=== PATIENT | female | born 1960 | race Caucasian/White ===

== ENCOUNTER 2018-09-16 13:08 | Inpatient (IN) ==
[2018-09-16] MEDS ORDERED: Acetaminophen 325 MG TABLET PO PRN (15:37)
--- NOTE | 2018-09-16 15:48 | Internal Med History&Physical ---
Date of Encounter: 09/16/18 Time of Encounter: 17:51 Internal Medicine - H&P: HPI Chief complaint: Fatigue Admitted From: Hospital to Hospital Transfer History of present illness: Erendira Valencia is a 58 F w hx CAD s/p CABG, hx CVA, HTN, COPD, smoker, DM2, breast cancer s/p mastectomy and chemoradiation, who presented to OSH for fatigue. Pt's symptoms began yesterday AM while shopping, felt general unease for which she went home to take a nap. When she awoke, she was nauseated and had some mid- right sided continuous chest pressure not exertional for which she called EMS. Reportedly her SBP was ~240. Her nausea worsened throughout the day and led to nonbloody bilious vomiting. She also states that yesterday she felt her right arm and leg were weaker than previous, and she says in the OSH when attempting to walk her RN noted weakness, too. She says a CT scan yesterday showed a stroke. She was also noted to have elevated trop 0.7. Today, she denies [place], fever, vision or hearing or taste changes, no new numbness (says she gets tingling feet periodically), and no weakness today. N/V resolved. No further chest pain. In the OSH ED, pt underwent CT which showed area of encephalomelacia R parietal lobe likely old infarct but unable to rule out metastasis, etc. SBP was elevated. Trop also elevated to 0.7. Transferred to [facility] for further workup of potential ischemia and CVA/TIA. PMH: CAD, CVA, COPD, DM2, breast cancer PSH: CABG, mastectomy, x2 SH: lifelong smoker currently down to 6 cigarettes daily, no EtOH, lives at home w son FH: MGM from [place], father from stomach cancer, mother from COPD Allergies: compazine Past Med Surg Social Fam HX - Family History Mother Living Status: Hx Family Respiratory Disorders: Yes (COPD) Father Living Status: Hx Family Cancer: Yes Internal Medicine - H&P: Meds Allergy/AdvReac Type Severity Reaction Status Date / Time prochlorperazine Allergy Seizure Verified 09/16/18 16:05 [From Compazine] All Systems PM: A 10-system review of systems was performed and is negative for pertinent findings except as documented above in the HPI. Review of systems: Constitutional: No fever, chills, night sweats, weight change, appetite change, +malaise/fatigue Skin: No rash, itching, lesions, bruises HENT: No congestion, sore throat Eyes: No blurry vision, diminished vision Cardiovascular: +improved chest pain, no palpitations, edema, orthopnea Respiratory: No cough, shortness of breath, wheezing Gastrointestinal: +improved nausea, +improved vomiting, no abdominal pain, diarrhea, constipation Genitourinary: No dysuria, hematuria Musculoskeletal: No joint pains, decreased range of motion Neurological: No dizziness, headaches, weakness, +endorses slight confusion Psychiatric: No depression, +anxiety Allergy/Immunology: No history of environmental allergies, urticaria Endocrine: No polydipsia, polyuria, cold/heat intolerance - Constitutional Vitals: Vital Signs Temp Pulse Resp BP Pulse Ox 09/16/18 16:07 99 09/16/18 15:37 97.9 F 95 14 142/78 99 Intake and Output 09/16/18 09/16/18 09/16/18 07:59 15:59 23:59 Intake Total 0 / 0 0 / 0 Output Total 0 / 0 Balance 0 / 0 0 / 0 Intake: Oral 0 / 0 0 / 0 Output: Urine 0 / 0 Other: Meal Dinner Percent of Meal Consumed 0% Weight 51.6 kg Blood Glucose* 247 Patient Weight 09/16/18 23:59 Weight 51.6 kg Exam: General: NAD, AAOx3, good eye contact, well appearing Head: Atraumatic, normocephalic. Face symmetric Eyes: EOMI, sclerae anicteric ENT: Mucous membranes moist. Normal oral mucosa and dentition. Trachea midline. No cervical lymphadenopathy Thoracic: No visible chest wall deformities. Normal breath sounds b/l, no wheezing or crackles. Midline CABG scar. Cardio: Normal S1 and S2, regular rate and rhythm, no murmurs. No JVD Abdomen: Soft, nontender, nondistended. Bowel sounds present. No rebound Extremities: Warm, well perfused. DP pulses 2+ b/l. No clubbing, cyanosis. No edema Skin: Intact. No rashes, bruises, or ulcers Neurological: pt is awake and oriented to person, place, time, and situation Speech: fluent, comprehension, repetition, and naming intact CN: PERRLA, EOMI, intact sensation to light touch, face and smile symmetric, good hearing of whispered word, uvula midline, 5/5 strength of shoulder shrug, no tongue deviation. Motor: good tonus, 5/5 strength in all extremities Sensation intact to light touch DTR 1+ symmetrically in biceps, triceps, BR, knee, and ankle Cerebellar: FTN and HTS without dysmetria, no impairment with BERTA Romberg not tested Gait: no abnormalities noted Internal Med - H&P Results - Labs CBC & Chem 7: 09/16/18 18:22 - Assessment and plan (1) CVA (cerebral vascular accident) Current Visit: Yes Status: Acute Assessment and plan: Erendira Valencia is a 58 F w hx CAD s/p CABG, hx CVA, HTN, COPD, smoker, DM2, breast cancer s/p mastectomy and chemoradiation, who p/w fatigue, chest pain, and right sided weakness, found to have elevated SBP and troponin, and CT showing remote infarct, concerning for the following: TIA: CT head without bleed, does show remote parietal infarct and no acute process, by time of transfer is well past any TPA window although no current neurologic defects - Frequent Neuro checks - Imaging: MRI head, TTE, carotid duplex - Labs: lipids, A1c - home plavix 75, increase crestor from 10 to 40 - DVT ppx - SBP goal: <220 - Telemetry monitoring for arrythmia - PT/OT/Speech consults - Swallow screen - Smoking cessation counseled - Stroke education provided - Neuro consult Elevated troponin: possibly demand 2/2 HTN or sympathetic storm in context of new CVA - trend trops, was 0.7 at OSH - ECG - tele as above - TTE as above - consider cardio consultation following TTE for additional ischemic eval (?LHC) in pt w CABG and elevated trop 0.7 following chest pain and N/V DM2: w hyperglycemia, start basal levemir and bolus SSI CAD/PAD, s/p CABG: continue plavix, crestor, metoprolol HTN: continue home metoprolol, will monitor and add to home regimen if needed COPD: not in exacerbation, no wheezing and good expiratory flow, continue home inhalers Hx breast cancer: in remission, still has L chest port in place and pt reports the port from the catheter Smoker: nicotine patch offered, refused PPx: lovenox FEN: ADA, no MIVF Lines: PIV Consults: Neuro Code: Full Dispo: obs for TIA and ischemic eval, anticipate 1-2 days, will be homegoing. Qualifiers: CVA mechanism: unspecified Qualified Code(s): I63.9 - Cerebral infarction, unspecified - Time Spent With Patient Total time spent is greater than 50% in coordination of care (as documented) at patient's floor/unit and/or counseling patient: Greater than 35 minutes - VTE Reasons for not Prescribing Prophylaxis: Treatment not Indicated - Low risk for VTE
[2018-09-16] MEDS ORDERED: D5% in Water 1,000 ML IVC PRN (17:48)
[2018-09-16] MEDS ORDERED: Dextrose Gel 15 GM/37.5 ML TUBE PO PRN ×2 (17:48)
[2018-09-16] MEDS ORDERED: *HR* Dextrose 50 % in Water (Syg) 50 ML SYRINGE IVP PRN (17:48)
[2018-09-16] MEDS: Aspirin Enteric Coated 81 MG Tablet PO SCH (18:06)
[2018-09-16] MEDS: Insulin LISPRO 300 UNITS/3 ML VIAL SQ SCH ×2 (18:44→21:33)
[2018-09-16 18:57] LABS: BUN/Creatinine Ratio 33 (6-26); Blood Urea Nitrogen 29 mg/dL (8-23); Carbon Dioxide 21 mEq/L (23-29); Chloride 93 mEq/L (98-107); Glucose 274 mg/dL (70-105); Osmolality,Calculated 288 (280-300); Potassium 3.9 mEq/L (3.5-5.1); Sodium 131 mEq/L (136-145); eGFR For Non-African Americans > 60 (> 60)
[2018-09-16 19:00] LABS: Troponin I 0.45 ng/mL (< 0.04)
[2018-09-16] MEDS: Insulin DETEMIR 100 UNIT/ML X5UNITS SQ SCH (21:30)
[2018-09-16] MEDS: Budesonide/Formoterol 160/4.5 1 PUFF INH IH SCH (22:07)
[2018-09-16] MEDS ORDERED: Ondansetron 4 MG/2 ML VIAL IVP PRN (23:34)
[2018-09-17] MEDS ORDERED: 0.9 % Sodium Chloride 500 ML IVC ONE ×2 (02:05→04:21)
[2018-09-17] MEDS ORDERED: 0.9 % Sodium Chloride 500 ML ONE ×2 (02:07→04:13)
[2018-09-17] MEDS ORDERED: Ringers Solution, Lactated 1,000 ML ONE (05:48)
[2018-09-17] MEDS ORDERED: Ringers Solution, Lactated 1,000 ML IVC SCH (06:00)
[2018-09-17 06:38] LABS: Basophils % 0.2 %; Eosinophils % 0.1 %; Hematocrit 43.8 % (35.3-44.9); Hemoglobin 14.8 g/dL (11.5-15.4); Immature Granulocytes % 0.4 % (0-4); Lymphocytes # 3.1 K/mcL (0.6-4.6); Lymphocytes % 37.3 %; Mean Corpuscular HGB Conc 33.8 g/dL (31.6-35.5); Mean Corpuscular Hemoglobin 30.5 pg (28.0-33.3); Mean Corpuscular Volume 90.1 fL (83.0-100.0); Mean Platelet Volume 11.3 fL (9.4-12.4); Monocytes # 0.6 K/mcL (0.0-1.3); Monocytes % 6.7 %; Neutrophils # 4.7 K/mcL (1.6-8.9); Platelet Count 200 K/mcL (140-400); Red Blood Count 4.86 M/mcL (3.82-4.97); Red Cell Distribution Width 13.4 % (11.5-14.5); Segmented Neutrophils % 55.3 %
[2018-09-17 06:47] LABS: Prothrombin Time 10.9 Seconds (9.4-12.1)
[2018-09-17 06:51] LABS: Alanine Aminotransferase 6 Units/L (7-52); Albumin/Globulin Ratio 1.5 (1.1-2.2); Alkaline Phosphatase 67 Units/L (34-104); Aspartate Amino Transferase 15 Units/L (13-39); BUN/Creatinine Ratio 41 (6-26); Bilirubin,Total 0.5 mg/dL (0.3-1.0); Blood Urea Nitrogen 37 mg/dL (8-23); Calcium 9.1 mg/dL (8.6-10.3); Carbon Dioxide 18 mEq/L (23-29); Chloride 97 mEq/L (98-107); Chol/HDL Ratio 7.1 (0-4.9); Cholesterol 385 mg/dL (< 200); Globulin 2.7 g/dL (2.4-3.5); Glucose 307 mg/dL (70-105); HDL Cholesterol 54 mg/dL (40-59); Osmolality,Calculated 290 (280-300); Potassium 4.1 mEq/L (3.5-5.1); Sodium 130 mEq/L (136-145); Total Protein 6.7 g/dL (6.4-8.9); eGFR For Non-African Americans > 60 (> 60)
[2018-09-17 06:54] LABS: LDL Cholesterol,Calculated 262 mg/dL (0-99); Triglycerides 345 mg/dL (< 150); Troponin I 0.28 ng/mL (< 0.04)
[2018-09-17] MEDS: Budesonide/Formoterol 160/4.5 1 PUFF INH IH SCH ×2 (08:09→22:24)
[2018-09-17] MEDS ORDERED: *HR* Heparin 5,000 UNIT/ML VIAL IVP PRN ×2 (08:16)
[2018-09-17] MEDS ORDERED: *HR* Heparin 5,000 UNIT/ML VIAL IVP ONE (08:16)
[2018-09-17] MEDS: Insulin LISPRO 300 UNITS/3 ML VIAL SQ SCH ×7 (08:27→21:43)
[2018-09-17] MEDS: Aspirin Enteric Coated 81 MG Tablet PO SCH (08:27)
[2018-09-17] MEDS ORDERED: Heparin 25,000 UNIT/500 ML D5W 25,000 UNIT/500 ML BAG IVC SCH (08:30)
[2018-09-17 08:31] LABS: Estimated Average Glucose 306 mg/dl; Hemoglobin A1C 12.3 %
--- NOTE | 2018-09-17 09:29 | Cardiology Consult Note ---
Addendum entered and electronically signed by Rober Hinson DO 09/17/18 15:15: Continue Plavix as well. Addendum entered and electronically signed by Rober Hinson DO 09/17/18 15:12: I examined this patient and my medical decision-making was reviewed with the Resident Physician. I agree with the documented findings, disposition and treatment plan as described except to the extent set forth below. 58-year-old female presents with a primary complaint neurological symptoms. Blood pressure noted to be significantly elevated. Reports associated chest discomfort. Describes as a substernal pressure sensation. States chest discomfort is similar to prior episodes when she has required PCI. Primary compliance representative dealer is Dr. Montes De Oca at [facility]. States her last PCI was 2-3 years ago. Describes multiple prior stents. Impressions: 1. Hypertensive urgency. 2. Chest discomfort. 3. Mild troponin elevation of unclear significance. This could be related to extreme hypertension, but ACS cannot be excluded. 4. Multiple comorbidities include known CAD, diabetes, previous CVA, etc. Recommendations: 1. Neurological workup is in progress. 2. Recommend TTE. 3. Continue ACS therapy for now, including aspirin, statin, and beta marilee therapy. Continue heparin for now. 4. Further recommendations pending neurological workup and results of TTE. Thanks, Rober Hinson DO, [facility] Original Note: Date of Encounter: 09/17/18 Time of Encounter: 09:25 Assessment and Plan (1) NSTEMI (non-ST elevated myocardial infarction) Current Visit: Yes Status: Acute Troponin initially negative at [facility] then 0.771, here at [facility] from 0.45 to 0.28 Patient has significant history of caths and stents placed at [facility], will obtain previous records to review Chest pain free currently Will obtain ECHO today May require [facility] given extensive history and elevation in troponin, will obtain old records Not taking Plavix/ASA daily as directed at home Discussion w patient/family: The assessment and plan as outlined above was discussed with the patient and/or family members who expressed understanding and agreement. All questions were answered. Thank you for involving us in the care of your patient. Please call with any questions. History of Present Illness Consult date: 09/17/18 Requesting physician: Phan Ledezma Consult reason: elevated troponin Chief complaint: fatigue History of present illness: Ms. Valencia is a 58 year old female with history of COPD, CAD s/p PCI, HLD, smoking who presented to [facility] for headache, fatigue, and several instances of vomiting. The headache was sudden onset. She states she has daily dullness in her chest and shortness of breath. Not significantly exacerbated by exertion. She states she has had several stents and caths in the past at [facility], she thinks most recently was 2 years ago. She takes plavix and lipitor every o ther day. She is on oxygen at home at night and states she is unable to lay flat at baseline. She denies any current chest pain or significant shortness of breath. Past Med Surg Social Fam HX - Past Medical History Attestation: Yes The following information was validated with the patient. Medical history: asthma, COPD, coronary artery disease, CVA, diabetes, GERD, kidney stones, myocardial infarction Psychiatric history: bipolar, depression - Past Surgical History Surgical History: angioplasty/stent, breast surgery, , coronary bypass (CABG) - Social History Smoking Status: Current every day smoker Packs per day: 6 cigarettes per day Smokeless Tobacco Status: No Alcohol use: none Drug use: none - Family History Mother Living Status: Hx Family Respiratory Disorders: Yes (COPD) Father Living Status: Hx Family Cancer: Yes Medications and Allergies Allergy/AdvReac Type Severity Reaction Status Date / Time prochlorperazine Allergy Seizure Verified 09/16/18 16:05 [From Compazine] All Systems Review: The remainder of the systems were reviewed and are negative - Constitutional Constitutional: headache(s), no chills, no weight gain - EENT Eyes: no blurred vision, no loss of vision - Cardiovascular Cardiovascular: chest pain at rest, chest pain with exertion, dyspnea on exertion, no dyspnea at rest - Respiratory Respiratory: cough, dyspnea - Gastrointestinal Gastrointestinal: no abdominal pain, no constipation - Genitourinary Genitourinary: no dysuria, no hematuria - Musculoskeletal Musculoskeletal: no abnormal gait, no arthralgias - Integumentary Integumentary: no erythema, no rash - Neurological Neurological: no abnormal speech, no dizziness Physical Examination Vital Signs, Last 4 Hours Temp Pulse Resp BP Pulse Ox 09/17/18 07:37 98.0 F 111 16 157/83 99 General: Conversant, No Apparent Distress HEENT: Atraumatic, Normocephaly, Mucus Membranes Moist Neck: No JVD, Normal carotid pulses Cardiac: Reg Rate and Rhythm, Normal S1 and S2, No Murmur Lungs: Normal Breath Sounds, No Wheeze, Rales, Rhonchi Neuro: Alert and responsive Abdomen: Soft, Non-Tender Skin: No rashes noted on visualized skin Musculoskeletal: No Chest Wall Tenderness Extremities: No Clubbing, No Cyanosis, No Edema, Normal Pulses Results 09/17/18 06:07 09/17/18 06:07 Lab Results 09/16/18 09/17/18 09/17/18 18:22 06:07 06:07 WBC Hgb Hct Plt Count INR 1.0 Sodium 131 L 130 L Potassium 3.9 4.1 Chloride 93 L 97 L Carbon Dioxide 21 L 18 L BUN 29 H 37 H Creatinine 0.88 0.91 Glucose 274 H 307 H Calcium 10.0 9.1 Total Bilirubin 0.5 AST 15 ALT 6 L Alkaline Phosphatase 67 Troponin I 0.45 H* 0.28 H* 09/17/18 06:07 WBC 8.4 Hgb 14.8 Hct 43.8 Plt Count 200 INR Sodium Potassium Chloride Carbon Dioxide BUN Creatinine Glucose Calcium Total Bilirubin AST ALT Alkaline Phosphatase Troponin I - Imaging and Cardiology Echo: pending Cardiac cath: other (requested) - EKG Interpretation EKG results cardiology: personally reviewed, normal ECG, sinus rhythm, no diagnostic ischemia Consult Discharge Plan - Plan Referrals: NONE,PCP [Primary Care Provider] -
--- NOTE | 2018-09-17 12:28 | Neurology - Consult Note ---
<Zen Garcia J - Last Filed: 09/17/18 12:11> Date of Encounter: 09/17/18 Time of Encounter: 12:11 Assessment and Plan (1) CVA (cerebral vascular accident) Current Visit: Yes Status: Ruled-out Neruology was consulted to for suspected CVA. The patient presented to [facility] ED with HTN emergency, with complaints of dizziness, headache, as well as right arm and right leg parasthesias. The patient states that while walking at [facility] she noticed her right leg felt weaker than normal and that during the neuro exam her right arm and leg felt heavy and was numb. She does have a h/o prior CVA x2 with no residual deficits. The last CVA was 3 years ago by her approximation. She also has significant comorbidities including HTN, HLD, DM, age, prior CVAx2 and smoking history. Currently, she denies any arm or leg parasthesias. Her neurological exam is grossly normal and non lateralizing and non focal. MRI of the brain is negative for acute infarct but does show focal encephalomalacia with gliosis involving the right occipital lobe which may represent sequela of prior ischemia. Medical consult. There is minimal microvascular ischemic changes. bilateral carotid doppler studies pending. TTE is pending. I have personally discussed with the patient the need for lifestyle modification and modification of stroke risk factors including DM, HLD and HTN control as well as the need for smoking cessation. However, she admits to non compliance with medication regimen of ASA, statin and plavix and I am not convinced that she will be compliant in light of recent events. I suggest close follow-up with her PCP for monitoring of the above. Defer to primary team for further management of BP and DM while inpatient. I anticipate sign off with a negative MRI. Qualifiers: CVA mechanism: unspecified Qualified Code(s): I63.9 - Cerebral infarction, unspecified History of Present Illness Chief complaint: dizziness, lightheadedness, rt arm and rt leg hypoesthesias HPI: Ms. Valencia is a 58 year old female who presented from [facility] with chest pressure suspected NSTEMI, HTN emergency with SBP reportedly in the 200's at [facility]. She also had concerns for right arm and right leg hypoesthesias without parasthesias. Neurology was consulted for evaluation of possible CVA. The patient does have prior history of CVA 2 with the last one occurring approximately 3 years ago with no residual deficits. She does have multiple comorbidities including HLD, HTN, DM, age, stroke history and smoking history. She reports that yesterday morning at around 10 a.m. while walking in [place] she began to experience dizziness and lightheadedness. She reports that while in the hospital for evaluation of dizziness she began to experience right arm and right leg numbness and tingling. She also mentions that while at [facility] she was have HTN with SBP in the 200's and a headache. She denies any vision changes, dysarthria, facial droop, hemiplegia, or hemiparesis. Additionally, she denies any fevers, chills, dyspnea, chest pain, or N/V/D. An MRI of the brain was completed and did not find any acute intracranial abnormality or acute infarct. There was also encephalomalacia with gliosis involving the right occip ital love which may be from sequelae of a prior ischemic or traumatic infarct; there was minimal ischemic changes. Past Med Surg Social Fam HX - Past Medical History Medical history: asthma, COPD, coronary artery disease, CVA, diabetes, GERD, kidney stones, myocardial infarction Psychiatric history: bipolar, depression - Past Surgical History Surgical History: angioplasty/stent, breast surgery, , coronary bypass (CABG) - Social History Smoking Status: Current every day smoker Packs per day: 6 cigarettes per day Smokeless Tobacco Status: No Alcohol use: none Drug use: none - Family History Mother Living Status: Hx Family Respiratory Disorders: Yes (COPD) Father Living Status: Hx Family Cancer: Yes Medications and Allergies Allergy/AdvReac Type Severity Reaction Status Date / Time prochlorperazine Allergy Seizure Verified 09/16/18 16:05 [From Compazine] All Systems: The remainder of the systems were reviewed and are negative Review of Systems: REVIEW OF SYSTEMS GENERAL: Negative for any nausea, vomiting, fevers, chills, or weight loss, fatigue NEUROLOGIC: Negative for any double vision, facial asymmetry, dysphagia, dysarthria, hemiparesis, vertigo, ataxia, seizures, paralysis, disorientation, speech or language dysfunction, or coordination difficulties, fumbling with objects, - - POSITIVE: for blurred vision (self limited, now resolved), Rt arm and Rt leg hypoesthesias PSYCH: NEGATIVE: agitation/irritability, anxiety - - POSITIVE: calm and cooperative HEENT: Negative for any head trauma, neck trauma, neck stiffness, photophobia, phonophobia, dysphagia, voice changes, sinusitis, rhinitis, tinnitus, decreased hearing, ear discharge or fullness,. POSITIVE: for headache CARDIAC: Negative for any chest pain, dyspnea on exertion, paroxysmal nocturnal dyspnea, peripheral edema. POSITIVE; HTN, MUSCULOSKELETAL: NEGATIVE: Joint pain, stiffness, loss of strength (bilateral), arthritis (mono or poly) Joint swelling (mono or poly), muscle pain/swelling, limitations to motor activity or tolerance INTEGUMENTARY: Negative for any rashes, eruptions, dryness, changes in skin/hair, nails Physical Examination - Vital Signs Vital Signs: Initial Vital Signs Pulse BP 71 116/67 09/16/18 05:30 09/16/18 05:30 - Exam Exam: Examination: *GENERAL APPEARANCE OF PATIENT elderly female who appears stated age *EYES: pupils equal, round, reactive to light and accommodation, conjunctiva clear without masses or ulcerations *CARDIOVASCULAR RRR, S1, S2, no mumurs, rubs, or gallops, no peripheral edema, distal temperature normal, dorsalis pedis pulses normal. 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 No abnormal movements, fasciculations or atrophy identified. Neurological: *ORIENTATION to time and place, person, situation *RECURRENT AND REMOTE MEMORY intact *ATTENTION AND CONCENTRATION are normal *LANGUAGE FUNCTION no aphasia or dysarthia was noted. *FUND OF KNOWLEDGE aware of current events, past history, vocabulary *MENTAL attention span and concentration normal. *CN II optic fundi were normal *CN III,IV, PERRLA extraocular eye movements were full, no nystagmus and no ptosis noted. *CN V shows normal sensation and jaw opens symmetrically. *CN VII shows normal facial movement symmetrically, upper and lower lashell aterally. *CN VIII shows no significant hearing loss on examination *CN IX,,X palate elevated symmetrically and normal gag reflex was noted. *CN XI normal strength in the sternocleidomastoid muscles, symmetrical shoulder shrugging. *CN XII tongue protruded in the midline, with normal strength and movement. *SENSORY EXAMINATION light touch intact and equal bilaterally *REFLEXES: deep tendon reflexes were normal and symmetrical , grade 2/4 diffusely, no pathological reflexes were noted. *CEREBELLAR TESTING normal finger to nose *PAIN LEVEL 0/10 Results - Laboratory Findings CBC and BMP: 09/17/18 06:07 09/17/18 06:07 Abnormal lab findings: Abnormal lab results Heparin Anti-Xa, Unfract 0.00 IU/mL (0.30-0.70) L 09/17/18 08:50 Sodium 130 mEq/L (136-145) L 09/17/18 06:07 Chloride 97 mEq/L (98-107) L 09/17/18 06:07 Carbon Dioxide 18 mEq/L (23-29) L 09/17/18 06:07 BUN 37 mg/dL (8-23) H 09/17/18 06:07 BUN/Creatinine Ratio 41 (6-26) H 09/17/18 06:07 Glucose 307 mg/dL (70-105) H 09/17/18 06:07 Hemoglobin A1c 12.3 % (-5.6) H 09/17/18 06:07 ALT 6 Units/L (7-52) L 09/17/18 06:07 Troponin I 0.28 ng/mL (< 0.04) H* 09/17/18 06:07 Triglycerides 345 mg/dL (< 150) H 09/17/18 06:07 Cholesterol 385 mg/dL (< 200) H 09/17/18 06:07 LDL Cholesterol, Calc 262 mg/dL (0-99) H 09/17/18 06:07 VLDL Cholesterol, Calc 69 mg/dL (< 31) H 09/17/18 06:07 Cholesterol/HDL Ratio 7.1 (0-4.9) H 09/17/18 06:07 Consult Discharge Plan - Plan Referrals: NONE,PCP [Primary Care Provider] - <Glenn Lala - Last Filed: 09/17/18 17:00> Date of Encounter: 09/17/18 Assessment and Plan (1) CVA (cerebral vascular accident) Current Visit: Yes Status: Deleted Case was discussed with Zen, I agree with his assessment and plan as outlined above. Patient I did not believe was quite frightened by these events realizes the importance of being compliant. He may discharge her at your discretion. I will reevaluate at your request. Qualifiers: CVA mechanism: unspecified Qualified Code(s): I63.9 - Cerebral infarction, unspecified History of Present Illness HPI: The chart was reviewed, the patient was seen and examined along with Zen. I agree with his history of present illness as stated above. I did review the MRI scan of the brain personally which does reveal an old area of encephalomalacia in the right occipital lobe. There is no evidence of acute infarct identified. All Systems: The remainder of the systems were reviewed and are negative Review of Systems: The balance of the systems review is negative. Physical Examination - Vital Signs Vital Signs: Initial Vital Signs Pulse BP 71 116/67 09/16/18 05:30 09/16/18 05:30 - Exam Exam: I agree with the nurse practitioners neurologic examination in its entirety as documented above. Results - Laboratory Findings CBC and BMP: 09/17/18 06:07 09/17/18 06:07 Abnormal lab findings: Abnormal lab results Heparin Anti-Xa, Unfract 0.00 IU/mL (0.30-0.70) L 09/17/18 08:50 Sodium 130 mEq/L (136-145) L 09/17/18 06:07 Chloride 97 mEq/L (98-107) L 09/17/18 06:07 Carbon Dioxide 18 mEq/L (23-29) L 09/17/18 06:07 BUN 37 mg/dL (8-23) H 09/17/18 06:07 BUN/Creatinine Ratio 41 (6-26) H 09/17/18 06:07 Glucose 307 mg/dL (70-105) H 09/17/18 06:07 POC Glucose 255 mg/dL (70-99) H 09/16/18 21:30 Hemoglobin A1c 12.3 % (-5.6) H 09/17/18 06:07 ALT 6 Units/L (7-52) L 09/17/18 06:07 Troponin I 0.28 ng/mL (< 0.04) H* 09/17/18 06:07 Triglycerides 345 mg/dL (< 150) H 09/17/18 06:07 Cholesterol 385 mg/dL (< 200) H 09/17/18 06:07 LDL Cholesterol, Calc 262 mg/dL (0-99) H 09/17/18 06:07 VLDL Cholesterol, Calc 69 mg/dL (< 31) H 09/17/18 06:07 Cholesterol/HDL Ratio 7.1 (0-4.9) H 09/17/18 06:07
--- NOTE | 2018-09-17 16:04 | Internal Med Progress Note ---
Hospitalist Progress Note - Encounter Date of Encounter: 09/17/18 Time of Encounter: 16:09 - Subjective Interval History: Reports feeling well today. No weakness or numbness. No other or new neurologic symptoms. No chest pain or SOB or further N/V. Patiently waiting for test today. - Exam Vitals: Temp Pulse Resp BP Pulse Ox 97.7 F 98 16 153/82 98 09/17/18 11:52 09/17/18 11:52 09/17/18 11:52 09/17/18 11:52 09/17/18 11:52 Exam: General: NAD, AAOx3, good eye contact, well appearing Thoracic: No visible chest wall deformities. Normal breath sounds b/l, no wh eezing or crackles. Midline CABG scar. Cardio: Normal S1 and S2, regular rate and rhythm Abdomen: Soft, nontender, nondistended. Extremities: Warm, well perfused. DP pulses 2+ b/l. No edema Skin: Intact. No rashes, bruises, or ulcers Neuro: awake, fully oriented, strength and sensation grossly intact in all 4 extremities today - Assessment and Plan (1) NSTEMI (non-ST elevated myocardial infarction) Current Visit: Yes Status: Acute - Summary of Assessment and Plan Summary of Assessment and Plan: Erendira Valencia is a 58 F w hx CAD s/p CABG, hx CVA, HTN, COPD, smoker, DM2, breast cancer s/p mastectomy and chemoradiation, who p/w fatigue, chest pain, and right sided weakness, found to have elevated SBP and troponin, and CT showing remote infarct, concerning for the following: TIA: CT head without bleed, does show remote parietal infarct. MRI confirms such and is also without acute process. No arrhythmia on tele. No deficits per PT/OT/PARKING LOT MANAGER. - Imaging: TTE, carotid duplex - home plavix 75, increase crestor from 10 to 40 at discharge (lipitor 80 while inpatient) - Neuro consult, appreciate evaluation NSTEMI: trops peak 0.7, no ECG changes - TTE pending - hep gtt - home ASA, plavix, BB - cardio following re further ischemic eval, appreciate co-management HLD: LDL is >200, will increase home crestor from 10 to 40 at discharge DM2: uncontrolled, A1c 12, w hyperglycemia, increase home levemir and will start pt on SSI CAD/PAD, s/p CABG: continue plavix, statin, metoprolol HTN: continue home metoprolol, will monitor and add to home regimen if needed COPD: not in exacerbation, no wheezing and good expiratory flow, continue home inhalers Hx breast cancer: in remission, still has L chest port in place and pt reports the port from the catheter Smoker: nicotine patch offered, refused PPx: hep gtt FEN: ADA, no MIVF Lines: PIV Consults: Neuro, cardio Code: Full Dispo: inpatient for NSTEMI as well as TIA eval, anticipate 1-2 days, will be homegoing - Time Spent with Patient Total time spent is greater than 50% in coordination of care (as documented) at patient's floor/unit and/or counseling patient: 25 - 35 minutes Internal Medicine: Result - Labs CBC & Chem 7: 09/17/18 06:07 09/17/18 06:07 Labs: Short CBC 09/17/18 Range/Units 06:07 WBC 8.4 (4.3-11.1) K/mcL Hgb 14.8 (11.5-15.4) g/dL Hct 43.8 (35.3-44.9) % Plt Count 200 (140-400) K/mcL Neutrophils # 4.7 (1.6-8.9) K/mcL BMP 09/16/18 09/17/18 18:22 06:07 Sodium 131 L 130 L Potassium 3.9 4.1 Chloride 93 L 97 L Carbon Dioxide 21 L 18 L BUN 29 H 37 H Creatinine 0.88 0.91 Glucose 274 H 307 H Calcium 10.0 9.1 Cardiac Enzymes 09/16/18 09/17/18 Range/Units 18:22 06:07 Troponin I 0.45 H* 0.28 H* (< 0.04) ng/mL Liver Function 09/17/18 Range/Units 06:07 Total Bilirubin 0.5 (0.3-1.0) mg/dL AST 15 (13-39) Units/L ALT 6 L (7-52) Units/L Alkaline Phosphatase 67 (34-104) Units/L Albumin 4.0 (3.5-5.7) g/dL - ABG Interpretation ABG results: PT/INR, D-dimer PT 10.9 Seconds (9.4-12.1) 09/17/18 06:07 - Impressions Impressions Brain MRI 09/17/18 09:53 IMPRESSION: 1. No acute intracranial abnormality. No acute infarct. 2. Focal encephalomalacia with gliosis involving the right occipital lobe, which may represent sequelae of a prior ischemic or traumatic insult. 3. Minimal microvascular ischemic change. D/ / Adriano Samuels MD / Adriano Samuels MD Interpreting Provider: Adriano Samuels MD - VTE Reasons for not Prescribing Prophylaxis: Treatment not Indicated - Low risk for VTE Consult Discharge Plan - Plan Referrals: NONE,PCP [Primary Care Provider] -
[2018-09-17] MEDS: Insulin DETEMIR 100 UNIT/ML X5UNITS SQ SCH (21:38)
--- NOTE | 2018-09-17 21:52 | Electrocardiograph Report ---
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
[2018-09-18 05:07] LABS: Hematocrit 38.7 % (35.3-44.9); Hemoglobin 13.2 g/dL (11.5-15.4); Mean Corpuscular HGB Conc 34.1 g/dL (31.6-35.5); Mean Corpuscular Hemoglobin 30.5 pg (28.0-33.3); Mean Corpuscular Volume 89.4 fL (83.0-100.0); Mean Platelet Volume 11.3 fL (9.4-12.4); Platelet Count 152 K/mcL (140-400); Red Blood Count 4.33 M/mcL (3.82-4.97); Red Cell Distribution Width 13.2 % (11.5-14.5)
[2018-09-18 05:26] LABS: BUN/Creatinine Ratio 47 (6-26); Blood Urea Nitrogen 27 mg/dL (8-23); Calcium 8.9 mg/dL (8.6-10.3); Carbon Dioxide 25 mEq/L (23-29); Chloride 100 mEq/L (98-107); Glucose 293 mg/dL (70-105); Magnesium 2.1 mg/dL (1.6-2.6); Osmolality,Calculated 294 (280-300); Potassium 3.5 mEq/L (3.5-5.1); Sodium 134 mEq/L (136-145); eGFR For Non-African Americans > 60 (> 60)
[2018-09-18] MEDS: Insulin LISPRO 300 UNITS/3 ML VIAL SQ SCH ×4 (08:41→12:10)
[2018-09-18] MEDS: Aspirin Enteric Coated 81 MG Tablet PO SCH (08:45)
--- NOTE | 2018-09-18 08:45 | Cardiology Progress Note ---
Addendum entered and electronically signed by Claire Jackson 09/18/18 15:13: Discussed with the patient the option of staying for further cardiac workup vs following up as an outpatient. The patient has had no further chest pain or shortness of breath and feels much improved since admission. She attributes her symptoms to her high blood pressure. Given her other various symptoms do not believe her symptoms were cardiac in origin. Encouraged close outpatient follow up and medical compliance and do not believe she requires cardiac catheterization at this point. Given her significant improvement and reassuring ECHO the patient will continue on medical therapy and follow up with accounts supervisor at [facility], Dr. Montes De Oca. She understands the need to be compliant with Plavix and Aspirin as directed and take anti-hypertensives. The patient agrees with and understands the course of treatment plan including plan for follow up. All questions answered. Cardiology defers discharge planning to primary team but from a cardiac standpoint, ready for discharge. Original Note: Date of Encounter: 09/18/18 Time of Encounter: 08:42 Assessment and Plan (1) NSTEMI (non-ST elevated myocardial infarction) Current Visit: Yes Status: Acute Troponin initially negative at [facility] then 0.771, here at [facility] from 0.45 to 0.28 Patient has significant history of caths and stents placed at [facility], still awaiting records of previous caths from [facility] Chest pain free currently ECHO showed EF of 60-65% with moderate LV hypertrophy but no wall motion abnormalities. Patent PFO with right to left shunt. May require LHC given extensive history and elevation in troponin, still awaiting old records Discussion w patient/family: The assessment and plan as outlined above was discussed with the patient and/or family members who expressed understanding and agreement. All questions were answered. Thank you for involving us in the care of your patient. Please call with any questions. Subjective Principal diagnosis: NSTEMI Interval history: Patient continues to be chest pain free but does note her heartrate climbs significantly when standing and returns to normal when sitting. Objective Vital Signs, Last 4 Hours Temp Pulse Resp BP Pulse Ox 09/18/18 08:08 98.2 F 86 15 137/74 99 09/18/18 04:44 97.7 F 87 16 119/61 99 General: Conversant, No Apparent Distress HEENT: Atraumatic, Normocephaly, Mucus Membranes Moist Neck: No JVD, Normal carotid pulses Cardiac: Reg Rate and Rhythm, Normal S1 and S2, No Murmur Lungs: Normal Breath Sounds, No Wheeze, Rales, Rhonchi Neuro: Alert and responsive, No focal deficits noted Abdomen: Soft, Non-Tender Skin: No rashes noted on visualized skin Musculoskeletal: No Chest Wall Tenderness Extremities: No Clubbing, No Cyanosis, No Edema, Normal Pulses Results 09/18/18 04:28 09/18/18 04:28 Lab Results 09/18/18 09/18/18 04:28 04:28 WBC 6.4 Hgb 13.2 D Hct 38.7 Plt Count 152 Sodium 134 L Potassium 3.5 Chloride 100 Carbon Dioxide 25 BUN 27 H Creatinine 0.58 L Glucose 293 H Calcium 8.9 Magnesium 2.1 Brain MRI 09/17/18 09:53 IMPRESSION: 1. No acute intracranial abnormality. No acute infarct. 2. Focal encephalomalacia with gliosis involving the right occipital lobe, which may represent sequelae of a prior ischemic or traumatic insult. 3. Minimal microvascular ischemic change. D/ / Adriano Samuels MD / Adriano Samuels MD Interpreting Provider: Adriano Samuels MD Echocardiogram 09/17/18 15:40 Impressions: LVEF 60-65%. Normal LV chamber size and function. Moderate concentric left ventricular hypertrophy. Normal right ventricular structure and function. PFO with right to left shunt. No evidence of pulmonary hypertension. No significant valvular dysfunction. Left Ventricular Wall Motion: Rest Echo Findings All wall segments showed normal motion. Findings: Study Quality * Technically adequate exam. ECG Findings * Sinus tachycardia. Left Ventricle * LVEF 60-65%. * Normal LV chamber size and function. * Moderate concentric left ventricular hypertrophy. Right Ventricle * Normal right ventricular structure and function. Left Atrium * Normal left atrial size. Right Atrium * Normal right atrial size. Interatrial Septum * PFO with right to left shunt. Aortic Valve * Trileaflet aortic valve. * Normal aortic valve structure. * No aortic regurgitation. * No aortic stenosis. Mitral Valve * No mitral regurgitation. * No mitral stenosis. * Mild mitral annular calcification Tricuspid Valve * Normal tricuspid valve structure. * No tricuspid regurgitation. * No tricuspid stenosis. * No evidence of pulmonary hypertension. Pulmonic Valve * Pulmonic valve is not well visualized. Aorta * Normally sized aortic root. Pericardium * The pericardium appears normal. IVC * Normal IVC dimensions and inspiratory collapse. - Imaging and Cardiology Echo: report reviewed - VTE Reasons for not Prescribing Prophylaxis: Treatment not Indicated - Low risk for VTE Consult Discharge Plan - Plan Referrals: NONE,PCP [Primary Care Provider] -
[2018-09-18] MEDS: Budesonide/Formoterol 160/4.5 1 PUFF INH IH SCH (10:44)
--- NOTE | 2018-09-18 11:59 | Internal Med Progress Note ---
Hospitalist Progress Note - Encounter Date of Encounter: 09/18/18 Time of Encounter: 11:59 - Subjective Interval History: Reports feeling well today. No weakness or numbness. No other or new neurologic symptoms. No chest pain or SOB or further N/V. Patiently waiting for test today. - Exam Vitals: Temp Pulse Resp BP Pulse Ox 98.2 F 82 18 140/85 99 09/18/18 11:24 09/18/18 11:24 09/18/18 11:24 09/18/18 11:24 09/18/18 11:24 - Assessment and Plan (1) NSTEMI (non-ST elevated myocardial infarction) Current Visit: Yes Status: Acute - Time Spent with Patient Total time spent is greater than 50% in coordination of care (as documented) at patient's floor/unit and/or counseling patient: Internal Medicine: Result - Labs CBC & Chem 7: 09/18/18 04:28 09/18/18 04:28 Labs: Short CBC 09/18/18 Range/Units 04:28 WBC 6.4 (4.3-11.1) K/mcL Hgb 13.2 D (11.5-15.4) g/dL Hct 38.7 (35.3-44.9) % Plt Count 152 (140-400) K/mcL BMP 09/18/18 04:28 Sodium 134 L Potassium 3.5 Chloride 100 Carbon Dioxide 25 BUN 27 H Creatinine 0.58 L Glucose 293 H Calcium 8.9 - ABG Interpretation ABG results: PT/INR, D-dimer PT 10.9 Seconds (9.4-12.1) 09/17/18 06:07 - Impressions Impressions Echocardiogram 09/17/18 15:40 Impressions: LVEF 60-65%. Normal LV chamber size and function. Moderate concentric left ventricular hypertrophy. Normal right ventricular structure and function. PFO with right to left shunt. No evidence of pulmonary hypertension. No significant valvular dysfunction. Left Ventricular Wall Motion: Rest Echo Findings All wall segments showed normal motion. Findings: Study Quality * Technically adequate exam. ECG Findings * Sinus tachycardia. Left Ventricle * LVEF 60-65%. * Normal LV chamber size and function. * Moderate concentric left ventricular hypertrophy. Right Ventricle * Normal right ventricular structure and function. Left Atrium * Normal left atrial size. Right Atrium * Normal right atrial size. Interatrial Septum * PFO with right to left shunt. Aortic Valve * Trileaflet aortic valve. * Normal aortic valve structure. * No aortic regurgitation. * No aortic stenosis. Mitral Valve * No mitral regurgitation. * No mitral stenosis. * Mild mitral annular calcification Tricuspid Valve * Normal tricuspid valve structure. * No tricuspid regurgitation. * No tricuspid stenosis. * No evidence of pulmonary hypertension. Pulmonic Valve * Pulmonic valve is not well visualized. Aorta * Normally sized aortic root. Pericardium * The pericardium appears normal. IVC * Normal IVC dimensions and inspiratory collapse. - VTE Reasons for not Prescribing Prophylaxis: Treatment not Indicated - Low risk for VTE Consult Discharge Plan - Plan Referrals: NONE,PCP [Primary Care Provider] -
[2018-09-18 15:29] VITALS: BP 129/84
--- NOTE | 2018-09-18 16:19 | Discharge Summary ---
- NOTES TO OUTPATIENT PROVIDER Notes to Outpatient Provider: Presented with CP, nausea, HTN, and R-sided weakness. 1) TIA eval unremarkable. 2) A1c 12 and starting basal insulin. 3) Mildly elevated troponin, TTE unremarkable, will follow up cardiology Orders not resulted at time of discharge: Pending orders 09/17/18 04:00 Urinalysis reflex Microscopic [URIN] AM 0400 09/18/18 23:50 Heparin anti-factor XA UFH [COAG] Timed Date of Encounter: 09/18/18 Time of Encounter: 16:17 - Discharge Diagnosis (1) NSTEMI (non-ST elevated myocardial infarction) Priority: Primary Status: Acute Hospital course: Dear Doctors, I recently had the opportunity to care for this patient during their hospital stay at [facility]. Erendira Valencia is a 58 F w hx CAD s/p CABG, hx CVA, HTN, COPD, smoker, DM2, breast cancer s/p mastectomy and chemoradiation, who presented at time of admission to outside hospital with fatigue, atypical chest pain, and right sided weakness, found to have elevated SBP and elevated troponin 0.7. CT head showing remote infarct. Concerned for stroke or possible myocardial ischemia and transferred to [place]. In the hospital, pt without neuro deficits. Underwent TIA workup including MRI, TTE, and carotid duplex. MRI showing remote parietal infarct, nothing acute. TTE unremarkable. Telemetry without arrhythmias. Carotid duplex without significant stenosis. Troponins downtrended with control of blood pressure, and patient's symptoms all resolved. No deficits per PT/OT/NEUROSURGICAL PHYSICIAN ASSISTANT. Neuro and Cardio both consulted while inpatient, and will need cardio follow up as outpatient. Also, of note, pt reported noncompliance with homes meds. Her A1c was 12 and LDL ~250. Pt restarted on ASA, plavix, increased Crestor to 40, and restarted basaglar 15 qhs. Pt remained smoke free during hospitalization and requested patches to help remain smoke free at discharge. 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 Please contact me with any questions or concerns regarding their hospital stay. Sincerely, Phan Ledezma MD - Time Spent with Patient Total time spent providing and/or coordinating discharge services: Greater than 30 minutes - Discharge Medications Prescriptions: Insulin Glargine,Hum.rec.anlog [Basaglar Kwikpen U-100] 15 unit SQ HS #99 insuln.pen Nicotine Patch [Nicoderm] 1 patch TD DAILY #42 patch.td24 Nicotine Polacrilex [Nicotine Gum] 2 mg BC Q2H PRN #99 gum PRN Reason: Nicotine Cravings Rosuvastatin Calcium 40 mg PO DAILY #30 tablet Home Medications: Albuterol Sulfate [Ventolin Hfa] 1 puff IH Q4H PRN 09/17/18 [History] Aspirin [Lo-Dose Aspirin EC] 81 mg PO DAILY 09/17/18 [History] Clopidogrel [Plavix] 75 mg PO DAILY 09/17/18 [History] Metoprolol [Lopressor] 50 mg PO BID 09/17/18 [History] Oxygen 2 l NS HS 09/17/18 [History] Quetiapine Fumarate [Seroquel] 400 mg PO HS 09/17/18 [History] Insulin Glargine,Hum.rec.anlog [Basaglar Kwikpen U-100] 15 unit SQ HS #99 insuln.pen 09/18/18 [Rx] Nicotine Patch [Nicoderm] 1 patch TD DAILY #42 patch.td24 09/18/18 [Rx] Nicotine Polacrilex [Nicotine Gum] 2 mg BC Q2H PRN #99 gum 09/18/18 [Rx] Rosuvastatin Calcium 40 mg PO DAILY #30 tablet 09/18/18 [Rx] Allergies/Adverse Reactions: Allergy/AdvReac Type Severity Reaction Status Date / Time prochlorperazine Allergy Seizure Verified 09/16/18 16:05 [From Compazine] Date of admission: 09/17/18 09:38 Primary care physician: PCP NONE Consults: 09/16/18 15:37 Consult for Pharmacy Education [CONS] Stat Reason for Consult: cva Call Completed: No Consult to Neurology [CONS] Routine Consulting Provider: [facility] Reason for Consult: CVA on OSH CT Call Completed: No Consult to Occupational Therapy [CONS] Routine Comment: Evaluate, develop and implement POC Reason for Consult: weakness, s/p CVA Does patient have active BEDREST order?: No Is patient medically & hemodynamically stable?: Yes Consult to Physical Therapy [CONS] Routine Comment: Evaluate, develop and implement POC Reason for Consult: R weakness, s/p CVA Does patient have active BEDREST order?: No Is patient medically & hemodynamically stable?: Yes Consult to Water Trainer [CONS] Routine Reason for SW Consult: CVA 09/17/18 07:52 Consult to Cardiology [CONS] Routine Comment: Consulting Provider: Cardiology Cecile Reason for Consult: elevated troponin Call Completed: No - Constitutional Vitals: Temp Pulse Resp BP Pulse Ox 97.7 F 85 15 129/84 97 09/18/18 15:24 09/18/18 15:24 09/18/18 15:24 09/18/18 15:24 09/18/18 15:24 Exam: General: NAD, AAOx3, good eye contact, well appearing Thoracic: No visible chest wall deformities. Normal breath sounds b/l, no wheezing or crackles. Midline CABG scar. Cardio: Normal S1 and S2, regular rate and rhythm Abdomen: Soft, nontender, nondistended. Extremities: Warm, well perfused. DP pulses 2+ b/l. No edema Skin: Intact. No rashes, bruises, or ulcers Neuro: awake, fully oriented, strength and sensation grossly intact in all 4 extremities today - Patient Status Disposition: Home, Self-Care Condition: Fair Functional capacity at discharge: independent ambulation Overall status at discharge: patient is back to baseline - Discharge Instructions Follow Up With: NONE,PCP [Primary Care Provider] - - Diet and Activity Activity: increase activity as tolerated Diet: diabetic diet - VTE Reasons for not Prescribing Prophylaxis: Treatment not Indicated - Low risk for VTE
[2018-09-18] MEDS ORDERED: Insulin DETEMIR 100 UNIT/ML X5UNITS SQ SCH (21:00)
== END 2018-09-18 18:16 | disposition home or self-care (01) | DRG 281 ==
LOC: 2NENU → SUATTDRO 15:23
PROVIDERS: ADMIT Internal Medicine; ATTEND Internal Medicine

== ENCOUNTER 2018-09-25 12:14 | Inpatient (IN) ==
--- NOTE | 2018-09-25 12:35 | Emergency Department Note ---
Disposition Clinical Impression: DKA, type 1 Qualifiers: Diabetes mellitus complication detail: without coma Qualified Code(s): E10.10 - Type 1 diabetes mellitus with ketoacidosis without coma Vomiting Qualifiers: Vomiting type: unspecified Vomiting Intractability: non-intractable Nausea presence: with nausea Qualified Code(s): R11.2 - Nausea with vomiting, unspecif ied Disposition: Admitted As Inpatient Condition: Fair Time of Disposition: 15:18 General Adult HPI - General Chief complaint: ED Abdominal Pain Stated complaint: N/V Time Seen by Provider: 09/25/18 12:17 Source: patient Limitations: no limitations Nursing Notes Reviewed: Yes Vital Signs Reviewed: Yes - History of Present Illness HPI Narrative: 58 yo female with past medical history of diabetes, cancer, COPD, [place] presents to the emergency department with the complaint of nausea and vomiting. She was recently admitted to this facility for extensive evaluation and was discharged less than a week ago. Starting Friday night she became nauseous and began vomiting and has been unable to tolerate food or liquids since then. She is an insulin-dependent diabetic but has not been taking insulin as she has not been eating anything during this time. She states she has not tried to take anything for this nausea and vomiting. She feels very thirsty. She states she is still urinating and there is blood in her urine but this is not new. She denies dysuria. She does have some abdominal pain secondary to the vomiting. She denies chest pain. Pain Scale: 0 - Related Data Home Medications Medication Instructions Recorded Confirmed Albuterol Sulfate [Ventolin Hfa] 1 puff IH Q4H PRN 09/17/18 09/17/18 Aspirin [Lo-Dose Aspirin EC] 81 mg PO DAILY 09/17/18 09/17/18 Clopidogrel [Plavix] 75 mg PO DAILY 09/17/18 09/17/18 Metoprolol [Lopressor] 50 mg PO BID 09/17/18 09/17/18 Oxygen 2 l NS HS 09/17/18 09/17/18 Quetiapine Fumarate [Seroquel] 400 mg PO HS 09/17/18 09/17/18 Previous Rx's Medication Instructions Recorded Insulin Glargine,Hum.rec.anlog 15 unit SQ HS #99 insuln.pen 09/18/18 [Basaglar Brent[place] U-100] Nicotine Patch [Nicoderm] 1 patch TD DAILY #42 patch.td24 09/18/18 Nicotine Polacrilex [Nicotine Gum] 2 mg BC Q2H PRN #99 gum 09/18/18 Rosuvastatin Calcium 40 mg PO DAILY #30 tablet 09/18/18 Allergies Allergy/AdvReac Type Severity Reaction Status Date / Time prochlorperazine Allergy Seizure Verified 09/16/18 16:05 [From Compazine] All systems ED: reviewed and negative except as stated. Review of Systems: As Per HPI Constitutional: Reports: weakness. Denies: fever, chills Cardiovascular: Denies: chest pain, palpitations, dyspnea on exertion Respiratory: Denies: cough, dyspnea, wheezes Gastrointestinal: Reports: abdominal pain, nausea, vomiting. Denies: diarrhea, constipation, hematemesis, melena, hematochezia Genitourinary: Reports: hematuria. Denies: dysuria Musculoskeletal: Denies: back pain, neck pain Neurological: Denies: headache Endocrine: Reports: fatigue Past Medical History - Past Medical History Medical history: Reports: asthma, cancer, COPD, coronary artery disease, CVA, diabetes, GERD, kidney stones, myocardial infarction Surgical history: Reports: angioplasty/stent, breast surgery, , coronary bypass (CABG) Psychiatric history: Reports: bipolar, depression - Social History Smoking Status: Current every day smoker Smokeless Tobacco Status: No Alcohol use: Reports: none Drug use: Reports: none Physical Exam - General Limitations: no limitations General appearance: alert, anxious - Head Head exam: atraumatic, normocephalic - Eye Eye exam: Present: normal appearance, PERRL, EOMI - ENT ENT exam: mucous membranes dry - Neck Neck exam: Present: normal inspection. Absent: tenderness, lymphadenopathy - Chest Chest inspection: Present: normal inspection, symmetric chest wall rise. Absent: tenderness, rash - Respiratory Respiratory exam: Present: normal lung sounds bilaterally. Absent: wheezes, stridor - Cardiovascular Cardiovascular exam: Present: normal rhythm, tachycardia - Abdominal Exam Abdominal exam: Present: soft, tenderness. Absent: Rodriguez's sign, Rovsing's sign, tenderness at [place]Bur[place]'s Point Abdominal tenderness: Present: diffuse, moderate - Extremities Exam Extremities exam: Present: normal inspection. Absent: tenderness, pedal edema - Neurological Exam Neurological exam: Present: alert, oriented X3 - Psychiatric Psychiatric exam: Present: normal affect, normal mood - Skin Skin exam: Present: warm, dry, intact Course Vital Signs Temperature 98 F 09/25/18 12:16 Pulse Rate 99 09/25/18 12:16 Respiratory Rate 20 09/25/18 12:16 Blood Pressure 125/80 09/25/18 12:16 O2 Sat by Pulse Oximetry 98 09/25/18 12:16 Temperature 98 F 09/25/18 12:16 Pulse Rate 101 09/25/18 13:47 Respiratory Rate 16 09/25/18 13:47 Blood Pressure 175/80 09/25/18 13:47 O2 Sat by Pulse Oximetry 100 09/25/18 13:47 Oxygen Delivery Oxygen Delivery Room Air Medical Decision Making - MDM Narrative Medical decision making narrative: This patient has extensive cardiac history as well as insulin-dependent diabetes with elevated glucose on POC. She has not been taking her insulin. We will do a DKA workup and administer fluids as well as Zofran, Benadryl, Reglan. Labs have come back and demonstrate diabetic ketoacidosis with a gap of 29. EKG did not demonstrate any signs of ischemia and first troponin was negative. Her potassium is 4.8, we will start an insulin drip and add on a potassium rider. Hospitalist has accepted this patient for admission for management of her DKA. - Medical Records Medical records reviewed: Yes I reviewed the patient's medical records. - Lab Data Lab results reviewed: Yes I reviewed the patient's lab results. Result diagrams: 09/25/18 12:37 09/25/18 19:55 Lab Results 09/25/18 09/25/18 09/25/18 Range/Units 12:29 12:37 12:37 WBC 8.8 (4.3-11.1) K/mcL RBC 4.88 (3.82-4.97) M/mcL Hgb 14.9 (11.5-15.4) g/dL Hct 45.4 H (35.3-44.9) % MCV 93.0 (83.0-100.0) fL MCH 30.5 (28.0-33.3) pg MCHC 32.8 (31.6-35.5) g/dL RDW 13.4 (11.5-14.5) % Plt Count 284 (140-400) K/mcL MPV 11.5 (9.4-12.4) fL Immature Gran % 1.0 (0-4) % Seg Neutrophils % 89.7 % Lymphocytes % 7.2 % Monocytes % 1.9 % Eosinophils % 0.0 % Basophils % 0.2 % Neutrophils # 7.9 (1.6-8.9) K/mcL Lymphocytes # 0.6 (0.6-4.6) K/mcL Monocytes # 0.2 (0.0-1.3) K/mcL Eosinophils # 0.0 (0.0-0.6) K/mcL Basophils # 0.0 (0.0-0.2) K/mcL Sodium 134 L (136-145) mEq/L Potassium 4.8 (3.5-5.1) mEq/L Chloride 95 L (98-107) mEq/L Carbon Dioxide 10 L* (23-29) mEq/L BUN 26 H (8-23) mg/dL Creatinine 0.94 (0.60-1.20) mg/dL Est GFR ( Amer) > 60 (> 60) Est GFR (Non-Af Amer) > 60 (> 60) BUN/Creatinine Ratio 28 H (6-26) Glucose 492 H (70-105) mg/dL POC Glucose 420 H* (70-99) mg/dL Calculated Osmolality 305 H (280-300) Lactic Acid (0.5-2.2) mmol/L Calcium 9.4 (8.6-10.3) mg/dL Phosphorus 5.3 H (2.7-4.5) mg/dL Magnesium 2.1 (1.6-2.6) mg/dL Total Bilirubin 0.3 (0.3-1.0) mg/dL Direct Bilirubin 0.0 (0.0-0.2) mg/dL Indirect Bilirubin 0.3 (0.0-1.2) mg/dL AST 12 L (13-39) Units/L ALT 12 (7-52) Units/L Alkaline Phosphatase 78 (34-104) Units/L Troponin I < 0.03 (< 0.04) ng/mL Serum Total Protein 7.5 (6.4-8.9) g/dL Albumin 4.4 (3.5-5.7) g/dL Globulin 3.1 (2.4-3.5) g/dL Albumin/Globulin Ratio 1.4 (1.1-2.2) Amylase 33 (29-103) Units/L Lipase < 3 L (11-82) Units/L Beta-Hydroxybutyric Acd (0.02-0.27) mmol/L Urine Color (Yellow) Urine Clarity (Clear) Urine pH (5.0-8.0) pH Units Ur Specific [place] (1.010-1.025) Urine Protein (Neg-Trace) mg/dL Urine Glucose (UA) (Normal) mg/dL Urine Ketones (Negative) mg/dL Urine Blood (Negative) Urine Nitrite (Negative) Urine Bilirubin (Negative) Urine Urobilinogen (Normal) mg/dL Ur Leukocyte Esterase (Negative) Urine Microscopic RBC (0-3) per hpf Urine Microscopic WBC (0-3) per hpf Ur Squamous Epith Cells (None-Few) per lpf Urine Bacteria (None-Few) per hpf Hyaline Casts (None-Few) per lpf Ur Culture Indicated? (NO) 09/25/18 09/25/18 09/25/18 Range/Units 12:57 13:28 14:13 WBC (4.3-11.1) K/mcL RBC (3.82-4.97) M/mcL Hgb (11.5-15.4) g/dL Hct (35.3-44.9) % MCV (83.0-100.0) fL MCH (28.0-33.3) pg MCHC (31.6-35.5) g/dL RDW (11.5-14.5) % Plt Count (140-400) K/mcL MPV (9.4-12.4) fL Immature Gran % (0-4) % Seg Neutrophils % % Lymphocytes % % Monocytes % % Eosinophils % % Basophils % % Neutrophils # (1.6-8.9) K/mcL Lymphocytes # (0.6-4.6) K/mcL Monocytes # (0.0-1.3) K/mcL Eosinophils # (0.0-0.6) K/mcL Basophils # (0.0-0.2) K/mcL Sodium (136-145) mEq/L Potassium (3.5-5.1) mEq/L Chloride (98-107) mEq/L Carbon Dioxide (23-29) mEq/L BUN (8-23) mg/dL Creatinine (0.60-1.20) mg/dL Est GFR ( Amer) (> 60) Est GFR (Non-Af Amer) (> 60) BUN/Creatinine Ratio (6-26) Glucose (70-105) mg/dL POC Glucose (70-99) mg/dL Calculated Osmolality (280-300) Lactic Acid 2.5 H (0.5-2.2) mmol/L Calcium (8.6-10.3) mg/dL Phosphorus (2.7-4.5) mg/dL Magnesium (1.6-2.6) mg/dL Total Bilirubin (0.3-1.0) mg/dL Direct Bilirubin (0.0-0.2) mg/dL Indirect Bilirubin (0.0-1.2) mg/dL AST (13-39) Units/L ALT (7-52) Units/L Alkaline Phosphatase (34-104) Units/L Troponin I (< 0.04) ng/mL Serum Total Protein (6.4-8.9) g/dL Albumin (3.5-5.7) g/dL Globulin (2.4-3.5) g/dL Albumin/Globulin Ratio (1.1-2.2) Amylase (29-103) Units/L Lipase (11-82) Units/L Beta-Hydroxybutyric Acd > 2.00 H (0.02-0.27) mmol/L Urine Color Yellow (Yellow) Urine Clarity Clear (Clear) Urine pH 5.5 (5.0-8.0) pH Units Ur Specific [place] 1.025 (1.010-1.025) Urine Protein 100 H (Neg-Trace) mg/dL Urine Glucose (UA) >=1000 H (Normal) mg/dL Urine Ketones >=160 H (Negative) mg/dL Urine Blood Trace H (Negative) Urine Nitrite Negative (Negative) Urine Bilirubin Negative (Negative) Urine Urobilinogen Normal (Normal) mg/dL Ur Leukocyte Esterase Negative (Negative) Urine Microscopic RBC 0-3 (0-3) per hpf Urine Microscopic WBC 0-3 (0-3) per hpf Ur Squamous Epith Cells Moderate H (None-Few) per lpf Urine Bacteria None Seen (None-Few) per hpf Hyaline Casts None Seen (None-Few) per lpf Ur Culture Indicated? NO (NO) - EKG Data EKG #1 EKG attestation: Yes I reviewed and interpreted this EKG. EKG results narrative: EKG obtained at 12:30 on 09/25/2018 Heart rate 95 bpm, FL interval 192, QRS duration 94, QT 375, QTc 472 Sinus rhythm with nonspecific T-wave abnormalities. No signs of ST segment elevation or depressions. No signs of arrhythmias. Unchanged when compared to previous EKG obtained on 09/16/2018. Attestation Statement - Attestation Attestation: I, Antolin Varghese, examined this patient and my medical decision-making was reviewed with the REGIONAL OWNER OPERATOR TRUCK DRIVER/PA/Advanced Practice Nurse/Resident Physician. I agree with the documented findings, disposition and treatment plan as described except to the extent set forth below. 4-year-old female presents emergency Department with concerns of nausea and vomiting. Patient has not been taking her insulin over the past few days as she has a new form of insulin and does not know how to inject it. Patient had an anion gap of 29. Patient had elevated lactic acid, she was acidotic to 7.1 for an VBG. She was given insulin, IV fluids in the emergency department will be admitted for further care and evaluation.
[2018-09-25] MEDS ORDERED: 0.9 % Sodium Chloride 1,000 ML IVC ONE (12:45)
[2018-09-25] MEDS ORDERED: Ondansetron 4 MG/2 ML VIAL IVP ONE (12:45)
[2018-09-25 13:17] LABS: Basophils % 0.2 %; Hematocrit 45.4 % (35.3-44.9); Hemoglobin 14.9 g/dL (11.5-15.4); Lymphocytes # 0.6 K/mcL (0.6-4.6); Lymphocytes % 7.2 %; Mean Corpuscular HGB Conc 32.8 g/dL (31.6-35.5); Mean Corpuscular Hemoglobin 30.5 pg (28.0-33.3); Mean Platelet Volume 11.5 fL (9.4-12.4); Monocytes # 0.2 K/mcL (0.0-1.3); Monocytes % 1.9 %; Neutrophils # 7.9 K/mcL (1.6-8.9); Platelet Count 284 K/mcL (140-400); Red Blood Count 4.88 M/mcL (3.82-4.97); Red Cell Distribution Width 13.4 % (11.5-14.5); Segmented Neutrophils % 89.7 %
[2018-09-25] MEDS ORDERED: Metoclopramide 10 MG/2 ML VIAL IVP ONE (13:17)
[2018-09-25 13:32] LABS: Troponin I < 0.03 ng/mL (< 0.04)
[2018-09-25 13:48] LABS: Alanine Aminotransferase 12 Units/L (7-52); Albumin 4.4 g/dL (3.5-5.7); Albumin/Globulin Ratio 1.4 (1.1-2.2); Alkaline Phosphatase 78 Units/L (34-104); Amylase 33 Units/L (29-103); Aspartate Amino Transferase 12 Units/L (13-39); BUN/Creatinine Ratio 28 (6-26); Bilirubin,Indirect 0.3 mg/dL (0.0-1.2); Bilirubin,Total 0.3 mg/dL (0.3-1.0); Blood Urea Nitrogen 26 mg/dL (8-23); Calcium 9.4 mg/dL (8.6-10.3); Carbon Dioxide 10 mEq/L (23-29); Chloride 95 mEq/L (98-107); Globulin 3.1 g/dL (2.4-3.5); Glucose 492 mg/dL (70-105); Magnesium 2.1 mg/dL (1.6-2.6); Osmolality,Calculated 305 (280-300); Phosphorous 5.3 mg/dL (2.7-4.5); Potassium 4.8 mEq/L (3.5-5.1); Sodium 134 mEq/L (136-145); Total Protein 7.5 g/dL (6.4-8.9); eGFR For Non-African Americans > 60 (> 60)
[2018-09-25] MEDS ORDERED: *HR* Dextrose 50 % in Water (Syg) 50 ML SYRINGE IVP PRN ×2 (14:07→17:17)
[2018-09-25] MEDS ORDERED: Insulin Human Regular 100 UNIT in 0.9 % Sodium Chloride 100 ML IVC SCH ×2 (14:15→17:30)
[2018-09-25 14:23] LABS: Bilirubin,Urine Negative (Negative); Blood,Urine Trace (Negative); Clarity,Urine Clear (Clear); Color,Urine Yellow (Yellow); Glucose,Urine (UA) >=1000 mg/dL (Normal); Ketones,Urine >=160 mg/dL (Negative); Leukocyte Esterase,Urine Negative (Negative); Nitrite,Urine Negative (Negative); PH,Urine 5.5 pH Units (5.0-8.0); Protein,Urine 100 mg/dL (Neg-Trace); Specific Gravity,Urine 1.025 (1.010-1.025); Urobilinogen,Urine Normal (Normal)
[2018-09-25 14:27] LABS: Bacteria,Urine None Seen per hpf (None-Few); Hyaline Casts,Urine None Seen per lpf (None-Few); RBC,Urine 0-3 per hpf (0-3); Squamous Epithelial Cell,Urine Moderate per lpf (None-Few); WBC,Urine 0-3 per hpf (0-3)
[2018-09-25 15:00] LABS: Lipase < 3 Units/L (11-82)
[2018-09-25 16:57] LABS: VBG HCO3 8 mEq/L (21-27); VBG PCO2 24 mmHg (41-51); VBG PH 7.14 pH Units (7.32-7.42); VBG PO2 221 mmHg (25-50)
[2018-09-25] MEDS ORDERED: Insulin Regular, Human 100 UNIT/ML IV PRN (17:17)
[2018-09-25] MEDS ORDERED: D5% in 0.45% NACL w KCl 20 MEQ/1,000 ML MLS IVC PRN (17:17)
[2018-09-25] MEDS ORDERED: 0.9 % Sodium Chloride w KCl 20 MEQ/1,000 ML MLS IVC ONE (17:35)
[2018-09-25] MEDS ORDERED: *HR* LORazepam 2 MG/ML VIAL IVP ONE (18:22)
[2018-09-25] MEDS ORDERED: Naloxone 0.4 MG/ML INJ IVP PRN (18:53)
[2018-09-25] MEDS ORDERED: Nicotine 2 MG GUM BC PRN (19:57)
[2018-09-25] MEDS ORDERED: Ipratropium/Albuterol Neb 3 ML IH PRN (20:01)
[2018-09-25 20:41] LABS: BUN/Creatinine Ratio 34 (6-26); Blood Urea Nitrogen 27 mg/dL (8-23); Calcium 8.8 mg/dL (8.6-10.3); Carbon Dioxide 6 mEq/L (23-29); Chloride 105 mEq/L (98-107); Glucose 345 mg/dL (70-105); Osmolality,Calculated 301 (280-300); Potassium 6.3 mEq/L (3.5-5.1); Sodium 136 mEq/L (136-145); eGFR For Non-African Americans > 60 (> 60)
--- NOTE | 2018-09-25 21:41 | Internal Med History&Physical ---
Date of Encounter: 09/25/18 Time of Encounter: 19:00 Internal Medicine - H&P: HPI Chief complaint: Nausea and vomiting; has DKA Admitted From: Home Plans for Post Hospital Care: Home History of present illness: The patient is a 58-year-old woman. She was recently hospitalized here for treatment of NSTEMI; released home on 09/18/18 (a week ago). A few days later she developed the nausea and vomiting; without any significant abdominal pain. Then, developed weakness and tiredness. Finally, she came to emergency room for evaluation and treatments. We found her to have DKA. The patient was taking insulin at home. She has not had any fever or chills at home. Denies coughing and wheezing. Denies urinary symptoms. PAST MEDICAL HX: The patient has had underlying coronary artery disease. She had CABG surgery. She had recently cardiac catheterization at [facility]. She is treated for type 2 diabetes, hypertension and COPD. She is on Seroquel for unknown to us reason. PAST FAMILY HX: See below PAST SOCIAL HX: She smokes cigarettes every day; started as a teenager. Denies alcohol and illicit drug use. REVIEW OF SYSTEMS: All 14 organ systems were reviewed by me with the patient. Positive and pertinent negative findings are listed above. The rest of organ systems is negative. PHYSICAL EXAM: Skin: Free of rash and discoloration. Eyes: Sclera is white. There is no discharge from eyes. ENMT: Oral/pharyngeal mucosa is normal in appearance. There is no discharge from nose or ears. Respiratory: Normal breath sounds with no crackles and wheezes bilaterally. CV: Heart is regular with no gallop or murmur. GI: Abdomen is flat and soft with no palpable mass or visceromegaly. : There is no tenderness in patient's flanks bilaterally. Neuro exam: He has good strength in upper and lower extremities. He has normal eye movements. Psychiatric: He has normal affect. His thought process is appropriate to the situation. ADDITIONAL DATA: Her biochemistry panel shows bicarb of 10 with sodium of 134 potassium 4.8 and chloride of 95. Creatinine is 0.94. Liver function tests are normal. Lipase is below 3. Be that hydroxybutyric acid he is more than 2.00. CBC shows normal findings. WBCs 8.8 thousand. UA shows a lot of glucose and a lot of ketones; without changes suggesting uri nary tract infection. A/P: DKA in a patient with type 2 diabetes mellitus. It does not seem to be caused by an infection. It could be triggered by some GI problemit could be acute gastritis. She could also suffer from worsening of her gastroparesis (likely due to high glucose levels). xxx. We will keep her on DKA protocol. Coronary artery disease. Seems to be stable. Her troponin is below 0.03. To continue Lopressor with Crestor and aspirin/Plavix. Hypertension. Under control. To continue Lopressor. COPD without respiratory failure. I will offer her when necessary nebulizer treatments with DuoNeb. Past Med Surg Social Fam HX - Past Medical History Medical history: asthma, cancer, COPD, coronary artery disease, CVA, diabetes, GERD, kidney stones, myocardial infarction Psychiatric history: bipolar, depression - Past Surgical History Surgical History: angioplasty/stent, breast surgery, , coronary bypass (CABG) Additional surgical history: RIGHT BREAST MASTECTOMY, TRIPLE BYPASS, CARDIAC STENTS - Social History Smoking Status: Current every day smoker Smokeless Tobacco Status: No Alcohol use: none Drug use: none - Family History Mother Living Status: Hx Family Respiratory Disorders: Yes (COPD) Father Living Status: Hx Family Cancer: Yes Internal Medicine - H&P: Meds Albuterol Sulfate [Ventolin Hfa] 1 puff IH Q4H PRN 09/17/18 [History] Aspirin [Lo-Dose Aspirin EC] 81 mg PO DAILY 09/17/18 [History] Clopidogrel [Plavix] 75 mg PO DAILY 09/17/18 [History] Metoprolol [Lopressor] 50 mg PO BID 09/17/18 [History] Oxygen 2 l NS HS 09/17/18 [History] Quetiapine Fumarate [Seroquel] 400 mg PO HS 09/17/18 [History] Insulin Glargine,Hum.rec.anlog [Basaglar Brentpen U-100] 15 unit SQ HS #99 insuln.pen 09/18/18 [Rx] Nicotine Patch [Nicoderm] 1 patch TD DAILY #42 patch.td24 09/18/18 [Rx] Nicotine Polacrilex [Nicotine Gum] 2 mg BC Q2H PRN #99 gum 09/18/18 [Rx] Rosuvastatin Calcium 40 mg PO DAILY #30 tablet 09/18/18 [Rx] Allergy/AdvReac Type Severity Reaction Status Date / Time prochlorperazine Allergy Seizure Verified 09/16/18 16:05 [From Compazine] - Constitutional Vitals: Temp Pulse Resp BP Pulse Ox 97.8 F 120 21 143/87 100 09/25/18 19:52 09/25/18 19:52 09/25/18 19:52 09/25/18 19:52 09/25/18 19:52 General appearance: Present: A&O X 3, no acute distress, answers questions appropriately Exam: xx Internal Med - H&P Results - Labs CBC & Chem 7: 09/25/18 12:37 09/25/18 19:55 Labs: Short CBC 09/25/18 Range/Units 12:37 WBC 8.8 (4.3-11.1) K/mcL Hgb 14.9 (11.5-15.4) g/dL Hct 45.4 H (35.3-44.9) % Plt Count 284 (140-400) K/mcL Neutrophils # 7.9 (1.6-8.9) K/mcL BMP 09/25/18 09/25/18 12:37 19:55 Sodium 134 L 136 Potassium 4.8 6.3 H D Chloride 95 L 105 Carbon Dioxide 10 L* 6 L* BUN 26 H 27 H Creatinine 0.94 0.80 Glucose 492 H 345 H Calcium 9.4 8.8 Cardiac Enzymes 09/25/18 Range/Units 12:37 Troponin I < 0.03 (< 0.04) ng/mL Liver Function 09/25/18 Range/Units 12:37 Total Bilirubin 0.3 (0.3-1.0) mg/dL Direct Bilirubin 0.0 (0.0-0.2) mg/dL AST 12 L (13-39) Units/L ALT 12 (7-52) Units/L Alkaline Phosphatase 78 (34-104) Units/L Albumin 4.4 (3.5-5.7) g/dL Urine 09/25/18 Range/Units 14:13 Urine Color Yellow (Yellow) Urine Clarity Clear (Clear) Urine pH 5.5 (5.0-8.0) pH Units Ur Specific [place] 1.025 (1.010-1.025) Urine Protein 100 H (Neg-Trace) mg/dL Urine Glucose (UA) >=1000 H (Normal) mg/dL - ABG Interpretation ABG results: 09/25/18 16:49 VBG pH 7.14 L* VBG pCO2 24 L VBG pO2 221 H VBG HCO3 8 L - Assessment and plan (1) DKA (diabetic ketoacidoses) Current Visit: Yes Status: Acute Qualifiers: Diabetes mellitus type: type 2 Diabetes mellitus complication detail: without coma Qualified Code(s): E11.10 - Type 2 diabetes mellitus with ketoacidosis without coma (2) Type 2 diabetes mellitus Current Visit: Yes Status: Acute Qualifiers: Diabetes mellitus mcfp insulin use: with mcfp use Diabetes mellitus complication status: with hyperglycemia Qualified Code(s): E11.65 - Type 2 diabetes mellitus with hyperglycemia; Z79.4 - care home (current) use of insulin (3) CAD (coronary artery disease) Current Visit: Yes Status: Acute Qualifiers: Coronary Disease-Associated Artery/Lesion type: [place] artery [place] vs. transplanted heart: [place] heart Associated angina: without angina Qualified Code(s): I25.10 - Atherosclerotic heart disease of [place] coronary artery without angina pectoris (4) HTN (hypertension) Current Visit: Yes Status: Acute Qualifiers: Hypertension type: essential hypertension Qualified Code(s): I10 - Essential (primary) hypertension - Time Spent With Patient Total time spent is greater than 50% in coordination of care (as documented) at patient's floor/unit and/or counseling patient: 25 - 35 minutes - VTE Deep Vein Thrombosis/Pulmonary Embolism Present on Admission: No
[2018-09-26 00:11] LABS: VBG HCO3 8 mEq/L (21-27); VBG PCO2 20 mmHg (41-51); VBG PH 7.21 pH Units (7.32-7.42); VBG PO2 193 mmHg (25-50)
[2018-09-26 01:35] LABS: VBG HCO3 18 mEq/L (21-27); VBG PCO2 37 mmHg (41-51); VBG PO2 168 mmHg (25-50)
[2018-09-26 01:55] LABS: BUN/Creatinine Ratio 40 (6-26); Blood Urea Nitrogen 26 mg/dL (8-23); Calcium 8.2 mg/dL (8.6-10.3); Carbon Dioxide 17 mEq/L (23-29); Chloride 110 mEq/L (98-107); Glucose 197 mg/dL (70-105); Osmolality,Calculated 294 (280-300); Potassium 4.4 mEq/L (3.5-5.1); Sodium 137 mEq/L (136-145); eGFR For Non-African Americans > 60 (> 60)
[2018-09-26] MEDS: Nicotine 7 MG PATCH.TD24 TD SCH ×2 (03:11→09:17)
[2018-09-26 05:32] LABS: Basophils % 0.1 %; Hematocrit 39.8 % (35.3-44.9); Hemoglobin 13.4 g/dL (11.5-15.4); Immature Granulocytes % 0.5 % (0-4); Lymphocytes # 1.4 K/mcL (0.6-4.6); Lymphocytes % 13.5 %; Mean Corpuscular HGB Conc 33.7 g/dL (31.6-35.5); Mean Corpuscular Hemoglobin 30.5 pg (28.0-33.3); Mean Corpuscular Volume 90.5 fL (83.0-100.0); Monocytes # 0.8 K/mcL (0.0-1.3); Monocytes % 7.8 %; Neutrophils # 8.1 K/mcL (1.6-8.9); Platelet Count 229 K/mcL (140-400); Red Cell Distribution Width 13.5 % (11.5-14.5); Segmented Neutrophils % 78.1 %
[2018-09-26 05:33] LABS: VBG HCO3 19 mEq/L (21-27); VBG PCO2 33 mmHg (41-51); VBG PH 7.37 pH Units (7.32-7.42); VBG PO2 68 mmHg (25-50)
[2018-09-26 05:53] LABS: BUN/Creatinine Ratio 40 (6-26); Blood Urea Nitrogen 22 mg/dL (8-23); Calcium 8.1 mg/dL (8.6-10.3); Carbon Dioxide 18 mEq/L (23-29); Chloride 110 mEq/L (98-107); Glucose 156 mg/dL (70-105); Osmolality,Calculated 287 (280-300); Sodium 135 mEq/L (136-145); eGFR For Non-African Americans > 60 (> 60)
[2018-09-26] MEDS ORDERED: D5% in Water 1,000 ML IVC PRN (07:39)
[2018-09-26] MEDS ORDERED: *HR* Dextrose 50 % in Water (Syg) 50 ML SYRINGE IVP PRN (07:39)
[2018-09-26] MEDS ORDERED: Dextrose Gel 15 GM/37.5 ML TUBE PO PRN ×2 (07:39)
[2018-09-26] MEDS ORDERED: Insulin NPH 100 UNIT/ML (x5UNIT) SQ ONE (07:46)
[2018-09-26] MEDS: Aspirin Enteric Coated 81 MG Tablet PO SCH (09:16)
[2018-09-26] MEDS: Insulin LISPRO 300 UNITS/3 ML VIAL SQ SCH ×6 (10:40→20:25)
[2018-09-26] MEDS: Metoclopramide 10 MG/2 ML VIAL IVP SCH ×3 (13:49→16:54)
[2018-09-26] MEDS ORDERED: Metoclopramide 10 MG/2 ML VIAL IVP SCH (18:00)
[2018-09-26] MEDS ORDERED: *HR* LORazepam 2 MG/ML VIAL IVP ONE ×2 (18:09→21:57)
[2018-09-26] MEDS ORDERED: *HR* LORazepam 2 MG/ML VIAL ONE (18:11)
[2018-09-26] MEDS: Insulin DETEMIR 100 UNIT/ML X5UNITS SQ SCH (20:24)
--- NOTE | 2018-09-26 23:30 | Internal Med Progress Note ---
Hospitalist Progress Note - Encounter Date of Encounter: 09/26/18 Time of Encounter: 19:00 - Subjective Interval History: SUBJECTIVE: We got this patient out of DKA by today morning. She ate breakfast. She developed some nausea and vomiting after eating lunch. Not associated with abdominal pain. She complains of nearly constant upper substernal pain. She has had that the pain for weeks or months. She gets CABG surgery in the past. OBJECTIVE: Skin: Free of rash and discoloration. ENMT: Oral/pharyngeal mucosa is normal in appearance. Eyes: Sclera is white. There is no discharge from eyes. Respiratory: Normal breath sounds; no crackles or wheezes. CV: Heart is regular; no gallop or murmur. GI: Abdomen is soft and not tender. There is no palpable mass or visceromegaly. Neuro: There is no focal deficits. ADDITIONAL DATA: CBC is normal. Electrolytes are showing bicarb of 18. Creatinine is 0.55. Finger sticks for glucose from today are 149 and 120. ASSESSMENT AND PLAN: DKA. Subsided. I stopped IV insulin drip. I gave her 1 dose of Humulin N. She will start Levemir from today evening. She has underlying insulin-dependent type 2 diabetes mellitus. Other than Levemir, she will be getting Humalog with meals. Nausea and vomiting. Likely representing diabetic gastroparesis. I will give her IV Reglan every 6 hours (scheduled). For the next 2 days. Coronary artery disease. Seems to be stable. To continue Lopressor with Crestor and aspirin/Plavix Hypertension. Under control. To continue Lopressor. - Exam Vitals: Temp Pulse Resp BP Pulse Ox 98.9 F 128 20 139/76 97 09/26/18 19:49 09/26/18 19:49 09/26/18 19:49 09/26/18 19:49 09/26/18 19:49 Exam: xx - Assessment and Plan (1) DKA (diabetic ketoacidoses) Current Visit: Yes Status: Acute (2) Type 2 diabetes mellitus Current Visit: Yes Status: Acute (3) CAD (coronary artery disease) Current Visit: Yes Status: Acute (4) HTN (hypertension) Current Visit: Yes Status: Acute - Time Spent with Patient Total time spent is greater than 50% in coordination of care (as documented) at patient's floor/unit and/or counseling patient: 25 - 35 minutes Plan of Care Discussed with: patient Internal Medicine: Result - Labs CBC & Chem 7: 09/26/18 05:12 09/26/18 05:12 Labs: Short CBC 09/26/18 Range/Units 05:12 WBC 10.4 (4.3-11.1) K/mcL Hgb 13.4 D (11.5-15.4) g/dL Hct 39.8 (35.3-44.9) % Plt Count 229 (140-400) K/mcL Neutrophils # 8.1 (1.6-8.9) K/mcL BMP 09/26/18 09/26/18 01:20 05:12 Sodium 137 135 L Potassium 4.4 D 4.0 Chloride 110 H 110 H Carbon Dioxide 17 L 18 L BUN 26 H 22 Creatinine 0.65 0.55 L Glucose 197 H 156 H Calcium 8.2 L 8.1 L Cardiac Enzymes 09/26/18 Range/Units 21:40 Troponin I 0.03 (< 0.04) ng/mL - VTE Deep Vein Thrombosis/Pulmonary Embolism Present on Admission: No Consult Discharge Plan - Plan Referrals: Corina Jackson MD [Primary Care Provider] - (1) DKA (diabetic ketoacidoses) Qualifiers: Diabetes mellitus type: type 2 Diabetes mellitus complication detail: without coma Qualified Code(s): E11.10 - Type 2 diabetes mellitus with ketoacidosis without coma (2) Type 2 diabetes mellitus Qualifiers: Diabetes mellitus salvage determiner insulin use: with penitentiary use Diabetes mellitus complication status: with hyperglycemia Qualified Code(s): E11.65 - Type 2 diabetes mellitus with hyperglycemia; Z79.4 - senior care (current) use of insulin (3) CAD (coronary artery disease) Qualifiers: Coronary Disease-Associated Artery/Lesion type: [place] artery [place] vs. transplanted heart: [place] heart Associated angina: without angina Qualified Code(s): I25.10 - Atherosclerotic heart disease of [place] coronary artery without angina pectoris (4) HTN (hypertension) Qualifiers: Hypertension type: essential hypertension Qualified Code(s): I10 - Essential (primary) hypertension
--- NOTE | 2018-09-27 05:29 | Electrocardiograph Report ---
[facility] Test Date: 2018-09-25 Pat Name: Erendira Valencia Department: [id number] Room: 2N07 Gender: F Pump Technician: : [id number] Requested By: Casandra Felder Order Number: [id number] Reading MD: Monica Collier Measurements Intervals [place] Rate: 95 P: 78 NE: 192 QRS: 79 QRSD: 94 T: 120 QT: 375 QTc: 472 Interpretive Statements Sinus rhythm Biatrial enlargement Nonspecific T abnormalities, lateral leads Electronically Signed On 09-27-2018 5:27:08 EST by Monica Collier
[2018-09-27] MEDS: Metoclopramide 10 MG/2 ML VIAL IVP SCH ×4 (05:51→23:18)
[2018-09-27 06:39] LABS: Estimated Average Glucose 306 mg/dl; Hemoglobin A1C 12.3 %
[2018-09-27] MEDS: Aspirin Enteric Coated 81 MG Tablet PO SCH (08:26)
[2018-09-27] MEDS: Nicotine 7 MG PATCH.TD24 TD SCH (08:27)
[2018-09-27] MEDS: Insulin LISPRO 300 UNITS/3 ML VIAL SQ SCH ×7 (08:28→21:13)
--- NOTE | 2018-09-27 21:03 | Internal Med Progress Note ---
Hospitalist Progress Note - Encounter Date of Encounter: 09/27/18 Time of Encounter: 19:00 - Subjective Interval History: SUBJECTIVE: She feels good today. She has not had any problems with her meals todaydid not develop any nausea or vomiting after eating. She continues to have nearly constant discomfort/mild pain in the upper sternal area. Denies coughing and wheezing. OBJECTIVE: Skin: Free of rash and discoloration. Musculoskeletal: There is mild tenderness at palpation of upper sternal area. ENMT: Oral/pharyngeal mucosa is normal in appearance. Eyes: Sclera is white. There is no discharge from eyes. Respiratory: Normal breath sounds; no crackles or wheezes. CV: Heart is regular; no gallop or murmur. GI: Abdomen is soft and not tender. There is no palpable mass or visceromegaly. Neuro: There is no focal deficits. ADDITIONAL DATA: Fingersticks for glucose from today are 198, 174, and 154. ASSESSMENT AND PLAN: Type 2 diabetes mellitus. Insulin-dependent. DKA subsided. No evidence for ongoing infection. To continue Levemir and when necessary Humalog. Nausea and vomiting. Likely representing diabetic gastroparesis. She is on IV scheduled Reglan. We will see tomorrow, how she is doing without that medication. Coronary artery disease. Seems to be stable. To continue Lopressor with Crestor and aspirin/Plavix Hypertension. Under control. To continue Lopressor. Disposition: To discharge her home tomorrow, if she remains stable without IV Reglan. - Exam Vitals: Temp Pulse Resp BP Pulse Ox 99.3 F 114 15 146/86 96 09/27/18 15:25 09/27/18 19:10 09/27/18 15:25 09/27/18 19:10 09/27/18 15:25 Exam: xx - Assessment and Plan (1) DKA (diabetic ketoacidoses) Current Visit: Yes Status: Acute (2) Type 2 diabetes mellitus Current Visit: Yes Status: Acute (3) CAD (coronary artery disease) Current Visit: Yes Status: Acute (4) HTN (hypertension) Current Visit: Yes Status: Acute - Time Spent with Patient Total time spent is greater than 50% in coordination of care (as documented) at patient's floor/unit and/or counseling patient: 25 - 35 minutes Plan of Care Discussed with: patient Internal Medicine: Result - Labs CBC & Chem 7: 02/02/19 05:12 09/26/18 05:12 Labs: Cardiac Enzymes 09/26/18 Range/Units 21:40 Troponin I 0.03 (< 0.04) ng/mL - VTE Deep Vein Thrombosis/Pulmonary Embolism Present on Admission: No Consult Discharge Plan - Plan Referrals: Corina Jackson MD [Primary Care Provider] - (1) DKA (diabetic ketoacidoses) Qualifiers: Diabetes mellitus type: type 2 Diabetes mellitus complication detail: without coma Qualified Code(s): E11.10 - Type 2 diabetes mellitus with ketoacidosis without coma (2) Type 2 diabetes mellitus Qualifiers: Diabetes mellitus filler leaf cutter long insulin use: with filler leaf cutter long use Diabetes mellitus complication status: with hyperglycemia Qualified Code(s): E11.65 - Type 2 diabetes mellitus with hyperglycemia; Z79.4 - keno terminal operator (current) use of insulin (3) CAD (coronary artery disease) Qualifiers: Coronary Disease-Associated Artery/Lesion type: [place] artery [place] vs. transplanted heart: [place] heart Associated angina: without angina Qualified Code(s): I25.10 - Atherosclerotic heart disease of [place] coronary artery without angina pectoris (4) HTN (hypertension) Qualifiers: Hypertension type: essential hypertension Qualified Code(s): I10 - Essential (primary) hypertension
[2018-09-27] MEDS: Insulin DETEMIR 100 UNIT/ML X5UNITS SQ SCH (21:08)
[2018-09-27] MEDS ORDERED: *HR* Labetalol 20 MG/4 ML SYRINGE IVP ONE (22:47)
[2018-09-28] MEDS ORDERED: 0.9 % Sodium Chloride 500 ML IVC ONE ×2 (05:22→06:45)
[2018-09-28] MEDS: Metoclopramide 10 MG/2 ML VIAL IVP SCH (05:34)
[2018-09-28 06:10] LABS: Basophils % 0.1 %; Eosinophils % 0.1 %; Hematocrit 38.7 % (35.3-44.9); Hemoglobin 13.2 g/dL (11.5-15.4); Immature Granulocytes % 0.2 % (0-4); Lymphocytes # 2.4 K/mcL (0.6-4.6); Lymphocytes % 29.6 %; Mean Corpuscular HGB Conc 34.1 g/dL (31.6-35.5); Mean Corpuscular Hemoglobin 29.9 pg (28.0-33.3); Mean Corpuscular Volume 87.6 fL (83.0-100.0); Mean Platelet Volume 10.8 fL (9.4-12.4); Monocytes # 0.9 K/mcL (0.0-1.3); Monocytes % 11.3 %; Neutrophils # 4.8 K/mcL (1.6-8.9); Platelet Count 202 K/mcL (140-400); Red Blood Count 4.42 M/mcL (3.82-4.97); Red Cell Distribution Width 13.4 % (11.5-14.5); Segmented Neutrophils % 58.7 %
[2018-09-28 06:29] LABS: BUN/Creatinine Ratio 33 (6-26); Blood Urea Nitrogen 25 mg/dL (8-23); Calcium 8.2 mg/dL (8.6-10.3); Carbon Dioxide 22 mEq/L (23-29); Chloride 99 mEq/L (98-107); Glucose 227 mg/dL (70-105); Osmolality,Calculated 288 (280-300); Sodium 133 mEq/L (136-145); eGFR For Non-African Americans > 60 (> 60)
[2018-09-28] MEDS: Insulin LISPRO 300 UNITS/3 ML VIAL SQ SCH ×7 (08:36→20:48)
[2018-09-28] MEDS: Aspirin Enteric Coated 81 MG Tablet PO SCH (08:41)
[2018-09-28] MEDS: Nicotine 7 MG PATCH.TD24 TD SCH (08:41)
--- NOTE | 2018-09-28 13:30 | Gastroenterology Consult Note ---
<Jesi Hooks - Last Filed: 09/29/18 09:14> Date of Encounter: 09/29/18 Time of Encounter: 12:45 - Assessment and plan (1) Vomiting Current Visit: Yes Status: Acute Assessment and plan: Pt presented with DKA and had intractable vomiting. She complains of pain and pressure in the epigastric area. She had relief on reglan but worsened after it was stopped. She is continued on PPI. Will proceed with EGD to rule out gastritis, esophagitis, PUD, or esophageal stricture as reason for vomiting and epigastric pain. Pt is on plavix. Qualifiers: Vomiting type: unspecified Vomiting Intractability: non-intractable Nausea presence: with nausea Qualified Code(s): R11.2 - Nausea with vomiting, unspecified (2) Epigastric abdominal pain Current Visit: Yes Status: Acute - Time Spent With Patient Total time spent is greater than 50% in coordination of care (as documented) at patient's floor/unit and/or counseling patient: GI History of Present Illness - Data of Consult Patient: new to practice Consult date: 09/28/18 Requesting Physician: Tristen Maynard - Consult Narrative Reason for consult: nausea History of present illness: The patient is a 58-year-old woman with CAD, s/p CABG, uncontrolled type 2 [place], hypertension and COPD.. She was recently hospitalized here for treatment of NSTEMI; released home on 09/18/18 (a week ago), she admits to some nausea and vomiting during that admission. A few days after discharge she developed worsening nausea and vomiting. She states she has been unable to keep anything down except for liquids. She admits to epigastric pain and pressure. She states it feels like food just sits above her stomach. any significant abdominal pain. Then, developed weakness and tiredness. Finally, she came to emergency room for evaluation and treatments. She was found to have DKA. She admits that DM is uncontrolled, her last Hgb A1c was 12. The patient was taking insulin at home. She denies any fever or diarrhea. She admits to chronic constipation, and states she hasn't had a BM in 2 weeks. Denies coughing and wheezing. Denies urinary symptoms procedures: denies nsaids: denies anticoagulants: plavix Past Med Surg Social Fam HX - Past Medical History Medical history: asthma, cancer, COPD, coronary artery disease, CVA, diabetes, GERD, kidney stones, myocardial infarction Psychiatric history: bipolar, depression - Past Surgical History Surgical History: angioplasty/stent, breast surgery, , coronary bypass (CABG) Additional surgical history: RIGHT BREAST MASTECTOMY, TRIPLE BYPASS, CARDIAC STENTS - Social History Smoking Status: Current every day smoker Smokeless Tobacco Status: No Alcohol use: none Drug use: none - Family History Mother Living Status: Hx Family Respiratory Disorders: Yes (COPD) Father Living Status: Hx Family Cancer: Yes Review of Systems: GI: as per [facility]: denies fever, has some chills EYES: denies yellow discoloration ENT: reports difficulty swallowing CARDIO: see HPI RESP: No Shortness of breath with exertion : denies change in color of urine NEURO: denies any weakness HEME: Denies any bruising MS: denies joint pain, joint swelling or back pain. DERM: denies rash or itching PSYCH: Denies history of anxiety or depression - Constitutional Vitals: Temp Pulse Resp BP Pulse Ox 98.1 F 88 14 149/76 97 09/28/18 11:56 09/28/18 11:56 09/28/18 11:56 09/28/18 11:56 09/28/18 11:56 Exam: CONSTITUTIONAL:alert, no acute distress.HEAD:normocephalic.EYES:no jaundice.NECK:no obvious swelling.HEART:regular rate and rhythm, no murmurs.LUNGS:bilateral good air entry.ABDOMEN:non distended, soft, tender epigastric area, no masses palpable, no organomegaly.RECTAL EXAM:Deferred.EXTREMITIES:no clubbing, cyanosis or edema.SKIN:no stigmata of chronic liver disease.NEUROLOGIC:no obvious focal defect. Results - Labs CBC & Chem 7: 09/28/18 05:42 09/28/18 05:42 Labs: Last Result Calcium 8.2 mg/dL (8.6-10.3) L 09/28/18 05:42 Troponin I 0.03 ng/mL (< 0.04) 09/26/18 21:40 Entire Visit Hgb 13.2 g/dL (11.5-15.4) 09/28/18 05:42 Hct 38.7 % (35.3-44.9) 09/28/18 05:42 Total Bilirubin 0.3 mg/dL (0.3-1.0) 09/25/18 12:37 AST 12 Units/L (13-39) L 09/25/18 12:37 ALT 12 Units/L (7-52) 09/25/18 12:37 Amylase 33 Units/L (29-103) 09/25/18 12:37 Lipase < 3 Units/L (11-82) L 09/25/18 12:37 Consult Discharge Plan - Plan Referrals: Corina Jackson MD [Primary Care Provider] - <ViraAbiolaMaria Victoria - Last Filed: 09/29/18 18:11> Date of Encounter: 09/29/18 Time of Encounter: 15:00 - Time Spent With Patient Total time spent is greater than 50% in coordination of care (as documented) at patient's floor/unit and/or counseling patient: GI History of Present Illness - Data of Consult Requesting Physician: Tristen Maynard - Consult Narrative History of present illness: Ms. Valencia is a 58 year old female - Constitutional Vitals: Temp Pulse Resp BP Pulse Ox 98.1 F 93 22 99/72 95 09/29/18 16:28 09/29/18 16:28 09/29/18 16:28 09/29/18 16:28 09/29/18 16:28 Results - Labs CBC & Chem 7: 09/28/18 05:42 09/28/18 05:42 Labs: Last Result Calcium 8.2 mg/dL (8.6-10.3) L 09/28/18 05:42 Troponin I 0.03 ng/mL (< 0.04) 09/26/18 21:40 Entire Visit Hgb 13.2 g/dL (11.5-15.4) 09/28/18 05:42 Hct 38.7 % (35.3-44.9) 09/28/18 05:42 Total Bilirubin 0.3 mg/dL (0.3-1.0) 09/25/18 12:37 AST 12 Units/L (13-39) L 09/25/18 12:37 ALT 12 Units/L (7-52) 02/01/19 12:37 Amylase 33 Units/L (29-103) 09/25/18 12:37 Lipase < 3 Units/L (11-82) L 09/25/18 12:37 - Attending Attestation I have personally performed a face to face evaluation on this patient. I have reviewed and agree with the care plan. History and Exam by me shows: Patient seen does admit of epigastric discomfort on examination. Does has mild epigastric tenderness. Assessment: Patient with DKA status post treatment now with epigastric discomfort nausea and vomiting. Recommendation: EGD to rule out esophageal/gastric etiology for symptom
[2018-09-28] MEDS: Acetaminophen 325 MG TABLET PO PRN (20:48)
[2018-09-28] MEDS: Insulin DETEMIR 100 UNIT/ML X5UNITS SQ SCH (20:48)
[2018-09-28] MEDS ORDERED: Mag Hydrox/Al Hydrox/Simeth 30 ML UDC PO ONE (23:20)
--- NOTE | 2018-09-29 04:23 | Internal Med Progress Note ---
Hospitalist Progress Note - Encounter Date of Encounter: 09/28/18 Time of Encounter: 19:00 - Subjective Interval History: SUBJECTIVE: The patient has developed significant mid epigastric pain. With off and on nausea but not vomiting. The pain seems to be worse at swallowing. Otherwise, she is doing fine. OBJECTIVE: Skin: Free of rash and discoloration. Musculoskeletal: There is mild tenderness at palpation of upper sternal area. ENMT: Oral/pharyngeal mucosa is normal in appearance. Eyes: Sclera is white. There is no discharge from eyes. Respiratory: Normal breath sounds; no crackles or wheezes. CV: Heart is regular; no gallop or murmur. GI: There is mild tenderness with palpation of mid epigastrium. There is no palpable mass or visceromegaly. Neuro: There is no focal deficits. ADDITIONAL DATA: Fingersticks for glucose from today are 162, 121 and 215. ASSESSMENT AND PLAN: Type 2 diabetes mellitus. Insulin-dependent. DKA subsided. No evidence for ongoing infection. To continue Levemir and when necessary Humalog. Nausea and vomiting. Likely representing diabetic gastroparesis. She was doing fine, when getting scheduled IV Reglan. After we stopped that medication she developed midepigastric pain with off and on nausea. I asked that GI to step in. I hope that they will do upper endoscopy for this patient. Coronary artery disease. Seems to be stable. To continue Lopressor with Crestor and aspirin/Plavix Hypertension. Under control. To continue Lopressor. Disposition: I hope to discharge her home tomorrowafter upper endoscopy. - Exam Vitals: Temp Pulse Resp BP Pulse Ox 98.3 F 88 16 99/64 95 09/29/18 04:00 09/29/18 04:00 09/29/18 04:00 09/29/18 04:00 09/29/18 04:00 Exam: xx - Assessment and Plan (1) Epigastric abdominal pain Current Visit: Yes Status: Acute (2) Type 2 diabetes mellitus Current Visit: Yes Status: Acute (3) CAD (coronary artery disease) Current Visit: Yes Status: Acute (4) HTN (hypertension) Current Visit: Yes Status: Acute - Time Spent with Patient Total time spent is greater than 50% in coordination of care (as documented) at patient's floor/unit and/or counseling patient: 25 - 35 minutes Plan of Care Discussed with: patient Internal Medicine: Result - Labs CBC & Chem 7: 09/28/18 05:42 09/28/18 05:42 Labs: Short CBC 09/28/18 Range/Units 05:42 WBC 8.1 (4.3-11.1) K/mcL Hgb 13.2 (11.5-15.4) g/dL Hct 38.7 (35.3-44.9) % Plt Count 202 (140-400) K/mcL Neutrophils # 4.8 (1.6-8.9) K/mcL BMP 09/28/18 05:42 Sodium 133 L Potassium 3.0 L Chloride 99 Carbon Dioxide 22 L BUN 25 H Creatinine 0.76 Glucose 227 H Calcium 8.2 L - Impressions Impressions KUB X-Ray 09/28/18 13:22 IMPRESSION: Bowel gas pattern is unremarkable. No significant finding in the abdomen. D/ / Steven Milan MD / Steven Milan MD Interpreting Provider: Steven Milan MD - VTE Deep Vein Thrombosis/Pulmonary Embolism Present on Admission: No Consult Discharge Plan - Plan Referrals: Corina Jackson MD [Primary Care Provider] - (2) Type 2 diabetes mellitus Qualifiers: Diabetes mellitus shelter insulin use: with intermediate project manager use Diabetes mellitus complication status: with hyperglycemia Qualified Code(s): E11.65 - Type 2 diabetes mellitus with hyperglycemia; Z79.4 - remote computer terminal operator (current) use of insulin (3) CAD (coronary artery disease) Qualifiers: Coronary Disease-Associated Artery/Lesion type: [place] artery [place] vs. transplanted heart: [place] heart Associated angina: without angina Qualified Code(s): I25.10 - Atherosclerotic heart disease of [place] coronary artery without angina pectoris (4) HTN (hypertension) Qualifiers: Hypertension type: essential hypertension Qualified Code(s): I10 - Essential (primary) hypertension
[2018-09-29] MEDS: 0.9 % Sodium Chloride w KCl 20 MEQ/1,000 ML MLS IVC SCH (07:22)
--- NOTE | 2018-09-29 09:23 | Event Note ---
Date of Encounter: 09/29/18 Time of Encounter: 09:00 Pt sitting up in bed, she states she tolerated po liquids yesterday. Will proceed with EGD today.
[2018-09-29] MEDS: Insulin LISPRO 300 UNITS/3 ML VIAL SQ SCH ×7 (09:41→22:50)
[2018-09-29] MEDS: Nicotine 7 MG PATCH.TD24 TD SCH (09:41)
[2018-09-29] MEDS: Aspirin Enteric Coated 81 MG Tablet PO SCH (10:07)
[2018-09-29] MEDS: Acetaminophen 325 MG TABLET PO PRN (10:11)
--- NOTE | 2018-09-29 13:34 | Anesthesia Evaluation PreOp ---
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 DIRECTOR History: CVA Other Medical History: Diabetes Type II (INSULIN DEPENDENT, POORLY CONTROLLED, DKA ON ADMISSION), GERD, Other (EPIGASTRIC PAIN, INTRACTABLE VOMITING) Anesthesia History: No Prior Anesthetic Complications, Past Anesthesia (RIGHT MASTECTOMY) Alcohol Use: none Drug use: none Medications and Allergies Albuterol Sulfate [Ventolin Hfa] 1 puff IH Q4H PRN 09/17/18 [History] Aspirin [Lo-Dose Aspirin EC] 81 mg PO DAILY 09/17/18 [History] Clopidogrel [Plavix] 75 mg PO DAILY 09/17/18 [History] Metoprolol [Lopressor] 50 mg PO BID 09/17/18 [History] Oxygen 2 l NS HS 09/17/18 [History] Quetiapine Fumarate [Seroquel] 400 mg PO HS 09/17/18 [History] Insulin Glargine,Hum.rec.anlog [Basaglar Kwikpen U-100] 15 unit SQ HS #99 insuln.pen 09/18/18 [Rx] Rosuvastatin Calcium 40 mg PO DAILY #30 tablet 09/18/18 [Rx] Allergy/AdvReac Type Severity Reaction Status Date / Time prochlorperazine Allergy Seizure Verified 09/27/18 11:35 [From Compazine] - Meds/Allergy Pre-op Review Medications Reviewed: Yes Allergies Reviewed: Yes Beta Blockers on Current Med List: Yes Anesthesia Results - Labs 09/28/18 05:42 09/28/18 05:42 Anesthesia Exam Vital Signs/O2 Sat/Glucose, Most Recent Temp Pulse Resp BP Pulse Ox 98.4 F 74 14 132/65 98 09/29/18 11:50 09/29/18 11:50 09/29/18 11:50 09/29/18 11:50 09/29/18 11:50 Blood Glucose* 134 Weight: 54 KG - BMI 22 NPO (# of Hours): >8 - Cardiac Rhythm: Regular - Pulmonary Breath Sounds: bilateral Clear Respiratory Effort: Symmetrical Anesthesia Assess/Plan ASA Score: 4 Anesthetic Plan: MAC Monitoring Plan: Standard Monitors Recovery Plan: Other
[2018-09-29] MEDS ORDERED: *HR* FentaNYL (PF) 100 MCG/2 ML VIAL ONE (15:23)
[2018-09-29] MEDS ORDERED: *HR* Midazolam HCl 5 MG/5 ML VIAL IVP ONE ×2 (15:24→16:04)
[2018-09-29] MEDS ORDERED: Simethicone 40 MG/0.6 ML MLS IR ONE (16:04)
[2018-09-29] MEDS ORDERED: *HR* FentaNYL (PF) 100 MCG/2 ML VIAL IVP ONE (16:04)
[2018-09-29] MEDS ORDERED: Tetracaine/Benzocaine/Butamben 1 SPRAY AEROSOL MM ONE (16:04)
--- NOTE | 2018-09-29 16:05 | Pre-Sedation Evaluation ---
Pre-sedation evaluation - Pre-sedation checklist Date of procedure: 09/29/18 Procedure: EGD Recent Vitals: Last Vital Signs Temp 98.6 F 09/29/18 15:48 Pulse 83 09/29/18 15:48 Resp 22 09/29/18 15:48 BP 186/80 09/29/18 15:48 Pulse Ox 100 09/29/18 15:48 H&P (including ROS) documented in medical record: Yes Previous reaction to sedatives/anesthetics: No Dietary Status: NPO after Midnight Dentition: dentures removed ASA Classification *see protocol: CLASS III-Severe systemic disease Plan of Care: Pt appropriate candidate for procedure/moderate/conscious sedation, Risks/benefits of procedure/sedation discussed w/ patient/family
[2018-09-29] MEDS: Insulin DETEMIR 100 UNIT/ML X5UNITS SQ SCH (22:51)
--- NOTE | 2018-09-30 04:24 | Internal Med Progress Note ---
Hospitalist Progress Note - Encounter Date of Encounter: 09/29/18 Time of Encounter: 19:00 - Subjective Interval History: SUBJECTIVE: She continues to have significant midepigastric pain. With off and on nausea but not vomiting. The pain seems to be worse at swallowing. Denies chest pain. Denies difficulty breathing, coughing and wheezing. OBJECTIVE: Skin: Free of rash and discoloration. Musculoskeletal: There is mild tenderness at palpation of upper sternal area. ENMT: Oral/pharyngeal mucosa is normal in appearance. Eyes: Sclera is white. There is no discharge from eyes. Respiratory: Normal breath sounds; no crackles or wheezes. CV: Heart is regular; no gallop or murmur. GI: There is mild tenderness with palpation of mid epigastrium. There is no palpable mass or visceromegaly. Neuro: There is no focal deficits. ADDITIONAL DATA: Fingersticks for glucose from today are 109, 134 and 176. ASSESSMENT AND PLAN: Type 2 diabetes mellitus. Insulin-dependent. DKA subsided. No evidence for ongoing infection. To continue Levemir and when necessary Humalog. Epigastric pain/nonbleeding duodenal ulcers/GERD. See results of upper endo scopy. The patient will be on twice a day PPI and 3 times a day Carafate. She will need a repeated EGD in about 2 months. Coronary artery disease. Seems to be stable. To continue Lopressor with C restor and aspirin/Plavix Hypertension. Under control. To continue Lopressor. Disposition: She can be discharged home, when not having vomiting/tolerating diabetic diet. - Exam Vitals: Temp Pulse Resp BP Pulse Ox 98.1 F 91 16 95/60 99 09/30/18 04:14 09/30/18 04:14 09/30/18 04:14 09/30/18 04:14 09/30/18 04:14 Exam: xx - Assessment and Plan (1) Epigastric abdominal pain Current Visit: Yes Status: Acute (2) Duodenal ulcer disease Current Visit: Yes Status: Acute (3) GERD (gastroesophageal reflux disease) Current Visit: Yes Status: Chronic (4) Type 2 diabetes mellitus Current Visit: Yes Status: Acute (5) CAD (coronary artery disease) Current Visit: Yes Status: Acute (6) HTN (hypertension) Current Visit: Yes Status: Acute - Time Spent with Patient Total time spent is greater than 50% in coordination of care (as documented) at patient's floor/unit and/or counseling patient: 25 - 35 minutes Plan of Care Discussed with: patient Internal Medicine: Result - Labs CBC & Chem 7: 09/28/18 05:42 09/28/18 05:42 - VTE Deep Vein Thrombosis/Pulmonary Embolism Present on Admission: No Consult Discharge Plan - Plan Referrals: Corina Jackson MD [Primary Care Provider] - (3) GERD (gastroesophageal reflux disease) Qualifiers: Esophagitis presence: with esophagitis Qualified Code(s): K21.0 - Gastro- esophageal reflux disease with esophagitis (4) Type 2 diabetes mellitus Qualifiers: Diabetes mellitus ad terminal makeup operator insulin use: with ad terminal makeup operator use Diabetes mellitus complication status: with hyperglycemia Qualified Code(s): E11.65 - Type 2 diabetes mellitus with hyperglycemia; Z79.4 - assisted (current) use of insulin (5) CAD (coronary artery disease) Qualifiers: Coronary Disease-Associated Artery/Lesion type: [place] artery [place] vs. transplanted heart: [place] heart Associated angina: without angina Qualified Code(s): I25.10 - Atherosclerotic heart disease of [place] coronary artery without angina pectoris (6) HTN (hypertension) Qualifiers: Hypertension type: essential hypertension Qualified Code(s): I10 - Essential (primary) hypertension
[2018-09-30] MEDS: *HR* Enoxaparin 40 MG/0.4 ML SYRINGE SQ SCH (05:17)
[2018-09-30 06:29] LABS: Basophils % 0.2 %; Eosinophils % 0.5 %; Hematocrit 35.6 % (35.3-44.9); Hemoglobin 12.3 g/dL (11.5-15.4); Immature Granulocytes % 0.2 % (0-4); Lymphocytes # 2.3 K/mcL (0.6-4.6); Lymphocytes % 27.6 %; Mean Corpuscular HGB Conc 34.6 g/dL (31.6-35.5); Mean Corpuscular Hemoglobin 30.4 pg (28.0-33.3); Mean Corpuscular Volume 87.9 fL (83.0-100.0); Mean Platelet Volume 10.8 fL (9.4-12.4); Monocytes # 0.6 K/mcL (0.0-1.3); Monocytes % 6.8 %; Neutrophils # 5.3 K/mcL (1.6-8.9); Platelet Count 189 K/mcL (140-400); Red Blood Count 4.05 M/mcL (3.82-4.97); Red Cell Distribution Width 12.9 % (11.5-14.5); Segmented Neutrophils % 64.7 %
[2018-09-30 06:50] LABS: BUN/Creatinine Ratio 40 (6-26); Blood Urea Nitrogen 12 mg/dL (8-23); Calcium 8.5 mg/dL (8.6-10.3); Carbon Dioxide 27 mEq/L (23-29); Chloride 102 mEq/L (98-107); Glucose 123 mg/dL (70-105); Osmolality,Calculated 285 (280-300); Potassium 3.3 mEq/L (3.5-5.1); Sodium 137 mEq/L (136-145); eGFR For Non-African Americans > 60 (> 60)
[2018-09-30] MEDS: Insulin LISPRO 300 UNITS/3 ML VIAL SQ SCH ×7 (08:24→22:56)
[2018-09-30] MEDS: Aspirin Enteric Coated 81 MG Tablet PO SCH (08:28)
[2018-09-30] MEDS: Nicotine 7 MG PATCH.TD24 TD SCH (08:30)
[2018-09-30] MEDS ORDERED: *HR* Enoxaparin 40 MG/0.4 ML SYRINGE SQ SCH (12:27)
--- NOTE | 2018-09-30 13:14 | Electrocardiograph Report ---
[place] [id number] Test Date: 2018-09-26 Pat Name: Erendira Valencia Department: 110 Room: [facility] Gender: F Valet: MARIELY : 1960 Requested By: Toby Crane Order Number: [id number] Reading MD: Esme Irby Measurements Intervals [place] Rate: 132 P: 83 DC: 138 QRS: 82 QRSD: 86 T: 77 QT: 294 QTc: 436 Interpretive Statements SINUS TACHYCARDIA NONSPECIFIC T-WAVE ABNORMALITY Electronically Signed On 09-30-2018 13:12:36 EST by Esme Irby
--- NOTE | 2018-09-30 14:50 | Internal Med Progress Note ---
Hospitalist Progress Note - Encounter Date of Encounter: 09/30/18 Time of Encounter: 11:30 - Subjective Interval History: Patient feels much better today. However she also reports chest pain that center and feels like pressure over her chest. It comes on intermittently and happened once during this hospitalization. She reports that it was relieved sp ontaneously. Worsens with activity and movement. No change with deep breaths. No palpitations. - Exam Vitals: Temp Pulse Resp BP Pulse Ox 99.2 F 81 17 127/72 97 09/30/18 11:23 09/30/18 11:23 09/30/18 11:23 09/30/18 11:23 09/30/18 11:23 Exam: General: Patient is alert, mild distress, oriented x 3 ENT: Mucous membranes moist Respiratory: Mild end expiratory wheezing, prolonged expiratory phase. Cardiovascular: Regular rate and rhythm. s1 and s2 normal No clicks, rubs, gallops, or murmurs. No pedal edema Abdomen: Abdomen is soft, nontender. Bowel sounds are present Musculoskeletal: Spontaneously moving all extremities Skin: warm, dry, intact. Neuro: Alert oriented x 3 normal cranial nerves, no focal deficits - Assessment and Plan (1) Type 2 diabetes mellitus Current Visit: Yes Status: Acute Assessment and Plan: With DKA on admission. Now resolved. Continue current insulin regimen. (2) CAD (coronary artery disease) Current Visit: Yes Status: Chronic Assessment and Plan: continue aspirin, Plavix. Patient reports chest pain. Will order stress test for tomorrow. Check another troponin and EKG. Patient recently had an episode of NSTEMI. At that time cardiology did not recommend left heart catheterization as they wanted to manage her medically especially due to compliance issues. Will consult cardiology if stress test is abnormal. (3) HTN (hypertension) Current Visit: Yes Status: Chronic Assessment and Plan: Blood pressure is well controlled at this time (4) Epigastric abdominal pain Current Visit: Yes Status: Acute Assessment and Plan: Due to duodenal ulcers. Continue pantoprazole and Carafate (5) Duodenal ulcer disease Current Visit: Yes Status: Acute (6) GERD (gastroesophageal reflux disease) Current Visit: Yes Status: Chronic Assessment and Plan: Management as above. (7) Chest pain Current Visit: Yes Status: Acute Assessment and Plan: Patient with history of coronary artery disease and prior CABG. Will get EKG. Check troponin. If troponins remain negative, stress test in morning. DVT Prophylaxis: On subcutaneous Lovenox - Time Spent with Patient Total time spent is greater than 50% in coordination of care (as documented) at patient's floor/unit and/or counseling patient: Internal Medicine: Result - Labs CBC & Chem 7: 09/30/18 06:20 09/30/18 06:20 Labs: Short CBC 09/25/18 09/25/18 09/25/18 Range/Units 12:29 12:37 12:37 WBC (4.3-11.1) K/mcL RBC 4.88 (3.82-4.97) M/mcL Hgb (11.5-15.4) g/dL Hct (35.3-44.9) % MCV 93.0 (83.0-100.0) fL MCH 30.5 (28.0-33.3) pg MCHC 32.8 (31.6-35.5) g/dL RDW 13.4 (11.5-14.5) % Plt Count (140-400) K/mcL MPV 11.5 (9.4-12.4) fL Immature Gran % 1.0 (0-4) % Seg Neutrophils % 89.7 % Lymphocytes % 7.2 % Monocytes % 1.9 % Eosinophils % 0.0 % Basophils % 0.2 % Neutrophils # (1.6-8.9) K/mcL Lymphocytes # 0.6 (0.6-4.6) K/mcL Monocytes # 0.2 (0.0-1.3) K/mcL Eosinophils # 0.0 (0.0-0.6) K/mcL Basophils # 0.0 (0.0-0.2) K/mcL VBG pH (7.32-7.42) pH Units VBG pCO2 (41-51) mmHg VBG pO2 (25-50) mmHg VBG HCO3 (21-27) mEq/L Sodium 134 L (136-145) mEq/L Potassium 4.8 (3.5-5.1) mEq/L Chloride 95 L (98-107) mEq/L Carbon Dioxide 10 L* (23-29) mEq/L BUN 26 H (8-23) mg/dL Creatinine 0.94 (0.60-1.20) mg/dL Est GFR ( Amer) > 60 (> 60) Est GFR (Non-Af Amer) > 60 (> 60) BUN/Creatinine Ratio 28 H (6-26) Glucose 492 H (70-105) mg/dL POC Glucose 420 H* (70-99) mg/dL Est Mean Plasma Glucose mg/dl Hemoglobin A1c ( - 5.6) % Calculated Osmolality 305 H (280-300) Lactic Acid (0.5-2.2) mmol/L Calcium 9.4 (8.6-10.3) mg/dL Phosphorus 5.3 H (2.7-4.5) mg/dL Magnesium 2.1 (1.6-2.6) mg/dL Total Bilirubin 0.3 (0.3-1.0) mg/dL Direct Bilirubin 0.0 (0.0-0.2) mg/dL Indirect Bilirubin 0.3 (0.0-1.2) mg/dL AST 12 L (13-39) Units/L ALT 12 (7-52) Units/L Alkaline Phosphatase 78 (34-104) Units/L Troponin I < 0.03 (< 0.04) ng/mL Serum Total Protein 7.5 (6.4-8.9) g/dL Albumin 4.4 (3.5-5.7) g/dL Globulin 3.1 (2.4-3.5) g/dL Albumin/Globulin Ratio 1.4 (1.1-2.2) Amylase 33 (29-103) Units/L Lipase < 3 L (11-82) Units/L Beta-Hydroxybutyric Acd (0.02-0.27) mmol/L Urine Color (Yellow) Urine Clarity (Clear) Urine pH (5.0-8.0) pH Units Ur Specific [place] (1.010-1.025) Urine Protein (Neg-Trace) mg/dL Urine Glucose (UA) (Normal) mg/dL Urine Ketones (Negative) mg/dL Urine Blood (Negative) Urine Nitrite (Negative) Urine Bilirubin (Negative) Urine Urobilinogen (Normal) mg/dL Ur Leukocyte Esterase (Negative) Urine Microscopic RBC (0-3) per hpf Urine Microscopic WBC (0-3) per hpf Ur Squamous Epith Cells (None-Few) per lpf Urine Bacteria (None-Few) per hpf Hyaline Casts (None-Few) per lpf Ur Culture Indicated? (NO) Specimen Rejected Person Notif of Crit 09/25/18 09/25/18 09/25/18 Range/Units 12:57 13:28 14:13 WBC (4.3-11.1) K/mcL RBC (3.82-4.97) M/mcL Hgb (11.5-15.4) g/dL Hct (35.3-44.9) % MCV (83.0-100.0) fL MCH (28.0-33.3) pg MCHC (31.6-35.5) g/dL RDW (11.5-14.5) % Plt Count (140-400) K/mcL MPV (9.4-12.4) fL Immature Gran % (0-4) % Seg Neutrophils % % Lymphocytes % % Monocytes % % Eosinophils % % Basophils % % Neutrophils # (1.6-8.9) K/mcL Lymphocytes # (0.6-4.6) K/mcL Monocytes # (0.0-1.3) K/mcL Eosinophils # (0.0-0.6) K/mcL Basophils # (0.0-0.2) K/mcL VBG pH (7.32-7.42) pH Units VBG pCO2 (41-51) mmHg VBG pO2 (25-50) mmHg VBG HCO3 (21-27) mEq/L Sodium (136-145) mEq/L Potassium (3.5-5.1) mEq/L Chloride (98-107) mEq/L Carbon Dioxide (23-29) mEq/L BUN (8-23) mg/dL Creatinine (0.60-1.20) mg/dL Est GFR ( Amer) (> 60) Est GFR (Non-Af Amer) (> 60) BUN/Creatinine Ratio (6-26) Glucose (70-105) mg/dL POC Glucose (70-99) mg/dL Est Mean Plasma Glucose mg/dl Hemoglobin A1c ( - 5.6) % Calculated Osmolality (280-300) Lactic Acid 2.5 H (0.5-2.2) mmol/L Calcium (8.6-10.3) mg/dL Phosphorus (2.7-4.5) mg/dL Magnesium (1.6-2.6) mg/dL Total Bilirubin (0.3-1.0) mg/dL Direct Bilirubin (0.0-0.2) mg/dL Indirect Bilirubin (0.0-1.2) mg/dL AST (13-39) Units/L ALT (7-52) Units/L Alkaline Phosphatase (34-104) Units/L Troponin I (< 0.04) ng/mL Serum Total Protein (6.4-8.9) g/dL Albumin (3.5-5.7) g/dL Globulin (2.4-3.5) g/dL Albumin/Globulin Ratio (1.1-2.2) Amylase (29-103) Units/L Lipase (11-82) Units/L Beta-Hydroxybutyric Acd > 2.00 H (0.02-0.27) mmol/L Urine Color Yellow (Yellow) Urine Clarity Clear (Clear) Urine pH 5.5 (5.0-8.0) pH Units Ur Specific [place] 1.025 (1.010-1.025) Urine Protein 100 H (Neg-Trace) mg/dL Urine Glucose (UA) >=1000 H (Normal) mg/dL Urine Ketones >=160 H (Negative) mg/dL Urine Blood Trace H (Negative) Urine Nitrite Negative (Negative) Urine Bilirubin Negative (Negative) Urine Urobilinogen Normal (Normal) mg/dL Ur Leukocyte Esterase Negative (Negative) Urine Microscopic RBC 0-3 (0-3) per hpf Urine Microscopic WBC 0-3 (0-3) per hpf Ur Squamous Epith Cells Moderate H (None-Few) per lpf Urine Bacteria None Seen (None-Few) per hpf Hyaline Casts None Seen (None-Few) per lpf Ur Culture Indicated? NO (NO) Specimen Rejected Person Notif of Crit 09/25/18 09/25/18 09/25/18 Range/Units 15:07 16:49 17:38 WBC (4.3-11.1) K/mcL RBC (3.82-4.97) M/mcL Hgb (11.5-15.4) g/dL Hct (35.3-44.9) % MCV (83.0-100.0) fL MCH (28.0-33.3) pg MCHC (31.6-35.5) g/dL RDW (11.5-14.5) % Plt Count (140-400) K/mcL MPV (9.4-12.4) fL Immature Gran % (0-4) % Seg Neutrophils % % Lymphocytes % % Monocytes % % Eosinophils % % Basophils % % Neutrophils # (1.6-8.9) K/mcL Lymphocytes # (0.6-4.6) K/mcL Monocytes # (0.0-1.3) K/mcL Eosinophils # (0.0-0.6) K/mcL Basophils # (0.0-0.2) K/mcL VBG pH 7.14 L* (7.32-7.42) pH Units VBG pCO2 24 L (41-51) mmHg VBG pO2 221 H (25-50) mmHg VBG HCO3 8 L (21-27) mEq/L Sodium (136-145) mEq/L Potassium (3.5-5.1) mEq/L Chloride (98-107) mEq/L Carbon Dioxide (23-29) mEq/L BUN (8-23) mg/dL Creatinine (0.60-1.20) mg/dL Est GFR ( Amer) (> 60) Est GFR (Non-Af Amer) (> 60) BUN/Creatinine Ratio (6-26) Glucose (70-105) mg/dL POC Glucose 394 H 389 H (70-99) mg/dL Est Mean Plasma Glucose mg/dl Hemoglobin A1c ( - 5.6) % Calculated Osmolality (280-300) Lactic Acid (0.5-2.2) mmol/L Calcium (8.6-10.3) mg/dL Phosphorus (2.7-4.5) mg/dL Magnesium (1.6-2.6) mg/dL Total Bilirubin (0.3-1.0) mg/dL Direct Bilirubin (0.0-0.2) mg/dL Indirect Bilirubin (0.0-1.2) mg/dL AST (13-39) Units/L ALT (7-52) Units/L Alkaline Phosphatase (34-104) Units/L Troponin I (< 0.04) ng/mL Serum Total Protein (6.4-8.9) g/dL Albumin (3.5-5.7) g/dL Globulin (2.4-3.5) g/dL Albumin/Globulin Ratio (1.1-2.2) Amylase (29-103) Units/L Lipase (11-82) Units/L Beta-Hydroxybutyric Acd (0.02-0.27) mmol/L Urine Color (Yellow) Urine Clarity (Clear) Urine pH (5.0-8.0) pH Units Ur Specific [place] (1.010-1.025) Urine Protein (Neg-Trace) mg/dL Urine Glucose (UA) (Normal) mg/dL Urine Ketones (Negative) mg/dL Urine Blood (Negative) Urine Nitrite (Negative) Urine Bilirubin (Negative) Urine Urobilinogen (Normal) mg/dL Ur Leukocyte Esterase (Negative) Urine Microscopic RBC (0-3) per hpf Urine Microscopic WBC (0-3) per hpf Ur Squamous Epith Cells (None-Few) per lpf Urine Bacteria (None-Few) per hpf Hyaline Casts (None-Few) per lpf Ur Culture Indicated? (NO) Specimen Rejected Person Notif of Kash LOPEZ 09/25/18 09/25/18 09/25/18 Range/Units 18:17 18:26 18:36 WBC (4.3-11.1) K/mcL RBC (3.82-4.97) M/mcL Hgb (11.5-15.4) g/dL Hct (35.3-44.9) % MCV (83.0-100.0) fL MCH (28.0-33.3) pg MCHC (31.6-35.5) g/dL RDW (11.5-14.5) % Plt Count (140-400) K/mcL MPV (9.4-12.4) fL Immature Gran % (0-4) % Seg Neutrophils % % Lymphocytes % % Monocytes % % Eosinophils % % Basophils % % Neutrophils # (1.6-8.9) K/mcL Lymphocytes # (0.6-4.6) K/mcL Monocytes # (0.0-1.3) K/mcL Eosinophils # (0.0-0.6) K/mcL Basophils # (0.0-0.2) K/mcL VBG pH (7.32-7.42) pH Units VBG pCO2 (41-51) mmHg VBG pO2 (25-50) mmHg VBG HCO3 (21-27) mEq/L Sodium (136-145) mEq/L Potassium (3.5-5.1) mEq/L Chloride (98-107) mEq/L Carbon Dioxide (23-29) mEq/L BUN (8-23) mg/dL Creatinine (0.60-1.20) mg/dL Est GFR ( Amer) (> 60) Est GFR (Non-Af Amer) (> 60) BUN/Creatinine Ratio (6-26) Glucose (70-105) mg/dL POC Glucose 398 H (70-99) mg/dL Est Mean Plasma Glucose mg/dl Hemoglobin A1c ( - 5.6) % Calculated Osmolality (280-300) Lactic Acid 1.5 (0.5-2.2) mmol/L Calcium (8.6-10.3) mg/dL Phosphorus (2.7-4.5) mg/dL Magnesium (1.6-2.6) mg/dL Total Bilirubin (0.3-1.0) mg/dL Direct Bilirubin (0.0-0.2) mg/dL Indirect Bilirubin (0.0-1.2) mg/dL AST (13-39) Units/L ALT (7-52) Units/L Alkaline Phosphatase (34-104) Units/L Troponin I (< 0.04) ng/mL Serum Total Protein (6.4-8.9) g/dL Albumin (3.5-5.7) g/dL Globulin (2.4-3.5) g/dL Albumin/Globulin Ratio (1.1-2.2) Amylase (29-103) Units/L Lipase (11-82) Units/L Beta-Hydroxybutyric Acd (0.02-0.27) mmol/L Urine Color (Yellow) Urine Clarity (Clear) Urine pH (5.0-8.0) pH Units Ur Specific [place] (1.010-1.025) Urine Protein (Neg-Trace) mg/dL Urine Glucose (UA) (Normal) mg/dL Urine Ketones (Negative) mg/dL Urine Blood (Negative) Urine Nitrite (Negative) Urine Bilirubin (Negative) Urine Urobilinogen (Normal) mg/dL Ur Leukocyte Esterase (Negative) Urine Microscopic RBC (0-3) per hpf Urine Microscopic WBC (0-3) per hpf Ur Squamous Epith Cells (None-Few) per lpf Urine Bacteria (None-Few) per hpf Hyaline Casts (None-Few) per lpf Ur Culture Indicated? (NO) Specimen Rejected Container Person Notif of Crit 09/25/18 09/25/18 09/25/18 Range/Units 19:54 19:55 20:54 WBC (4.3-11.1) K/mcL RBC (3.82-4.97) M/mcL Hgb (11.5-15.4) g/dL Hct (35.3-44.9) % MCV (83.0-100.0) fL MCH (28.0-33.3) pg MCHC (31.6-35.5) g/dL RDW (11.5-14.5) % Plt Count (140-400) K/mcL MPV (9.4-12.4) fL Immature Gran % (0-4) % Seg Neutrophils % % Lymphocytes % % Monocytes % % Eosinophils % % Basophils % % Neutrophils # (1.6-8.9) K/mcL Lymphocytes # (0.6-4.6) K/mcL Monocytes # (0.0-1.3) K/mcL Eosinophils # (0.0-0.6) K/mcL Basophils # (0.0-0.2) K/mcL VBG pH (7.32-7.42) pH Units VBG pCO2 (41-51) mmHg VBG pO2 (25-50) mmHg VBG HCO3 (21-27) mEq/L Sodium 136 (136-145) mEq/L Potassium 6.3 H D (3.5-5.1) mEq/L Chloride 105 (98-107) mEq/L Carbon Dioxide 6 L* (23-29) mEq/L BUN 27 H (8-23) mg/dL Creatinine 0.80 (0.60-1.20) mg/dL Est GFR ( Amer) > 60 (> 60) Est GFR (Non-Af Amer) > 60 (> 60) BUN/Creatinine Ratio 34 H (6-26) Glucose 345 H (70-105) mg/dL POC Glucose 252 H 230 H (70-99) mg/dL Est Mean Plasma Glucose mg/dl Hemoglobin A1c ( - 5.6) % Calculated Osmolality 301 H (280-300) Lactic Acid (0.5-2.2) mmol/L Calcium 8.8 (8.6-10.3) mg/dL Phosphorus (2.7-4.5) mg/dL Magnesium (1.6-2.6) mg/dL Total Bilirubin (0.3-1.0) mg/dL Direct Bilirubin (0.0-0.2) mg/dL Indirect Bilirubin (0.0-1.2) mg/dL AST (13-39) Units/L ALT (7-52) Units/L Alkaline Phosphatase (34-104) Units/L Troponin I (< 0.04) ng/mL Serum Total Protein (6.4-8.9) g/dL Albumin (3.5-5.7) g/dL Globulin (2.4-3.5) g/dL Albumin/Globulin Ratio (1.1-2.2) Amylase (29-103) Units/L Lipase (11-82) Units/L Beta-Hydroxybutyric Acd (0.02-0.27) mmol/L Urine Color (Yellow) Urine Clarity (Clear) Urine pH (5.0-8.0) pH Units Ur Specific [place] (1.010-1.025) Urine Protein (Neg-Trace) mg/dL Urine Glucose (UA) (Normal) mg/dL Urine Ketones (Negative) mg/dL Urine Blood (Negative) Urine Nitrite (Negative) Urine Bilirubin (Negative) Urine Urobilinogen (Normal) mg/dL Ur Leukocyte Esterase (Negative) Urine Microscopic RBC (0-3) per hpf Urine Microscopic WBC (0-3) per hpf Ur Squamous Epith Cells (None-Few) per lpf Urine Bacteria (None-Few) per hpf Hyaline Casts (None-Few) per lpf Ur Culture Indicated? (NO) Specimen Rejected Person Notif of Crit 09/25/18 09/25/18 09/25/18 Range/Units 22:02 22:58 23:50 WBC (4.3-11.1) K/mcL RBC (3.82-4.97) M/mcL Hgb (11.5-15.4) g/dL Hct (35.3-44.9) % MCV (83.0-100.0) fL MCH (28.0-33.3) pg MCHC (31.6-35.5) g/dL RDW (11.5-14.5) % Plt Count (140-400) K/mcL MPV (9.4-12.4) fL Immature Gran % (0-4) % Seg Neutrophils % % Lymphocytes % % Monocytes % % Eosinophils % % Basophils % % Neutrophils # (1.6-8.9) K/mcL Lymphocytes # (0.6-4.6) K/mcL Monocytes # (0.0-1.3) K/mcL Eosinophils # (0.0-0.6) K/mcL Basophils # (0.0-0.2) K/mcL VBG pH (7.32-7.42) pH Units VBG pCO2 (41-51) mmHg VBG pO2 (25-50) mmHg VBG HCO3 (21-27) mEq/L Sodium (136-145) mEq/L Potassium (3.5-5.1) mEq/L Chloride (98-107) mEq/L Carbon Dioxide (23-29) mEq/L BUN (8-23) mg/dL Creatinine (0.60-1.20) mg/dL Est GFR ( Amer) (> 60) Est GFR (Non-Af Amer) (> 60) BUN/Creatinine Ratio (6-26) Glucose (70-105) mg/dL POC Glucose 175 H 148 H (70-99) mg/dL Est Mean Plasma Glucose mg/dl Hemoglobin A1c ( - 5.6) % Calculated Osmolality (280-300) Lactic Acid (0.5-2.2) mmol/L Calcium (8.6-10.3) mg/dL Phosphorus (2.7-4.5) mg/dL Magnesium (1.6-2.6) mg/dL Total Bilirubin (0.3-1.0) mg/dL Direct Bilirubin (0.0-0.2) mg/dL Indirect Bilirubin (0.0-1.2) mg/dL AST (13-39) Units/L ALT (7-52) Units/L Alkaline Phosphatase (34-104) Units/L Troponin I (< 0.04) ng/mL Serum Total Protein (6.4-8.9) g/dL Albumin (3.5-5.7) g/dL Globulin (2.4-3.5) g/dL Albumin/Globulin Ratio (1.1-2.2) Amylase (29-103) Units/L Lipase (11-82) Units/L Beta-Hydroxybutyric Acd (0.02-0.27) mmol/L Urine Color (Yellow) Urine Clarity (Clear) Urine pH (5.0-8.0) pH Units Ur Specific [place] (1.010-1.025) Urine Protein (Neg-Trace) mg/dL Urine Glucose (UA) (Normal) mg/dL Urine Ketones (Negative) mg/dL Urine Blood (Negative) Urine Nitrite (Negative) Urine Bilirubin (Negative) Urine Urobilinogen (Normal) mg/dL Ur Leukocyte Esterase (Negative) Urine Microscopic RBC (0-3) per hpf Urine Microscopic WBC (0-3) per hpf Ur Squamous Epith Cells (None-Few) per lpf Urine Bacteria (None-Few) per hpf Hyaline Casts (None-Few) per lpf Ur Culture Indicated? (NO) Specimen Rejected Contaminated Person Notif of Crit 09/25/18 09/26/18 09/26/18 Range/Units 23:56 00:09 01:20 WBC (4.3-11.1) K/mcL RBC (3.82-4.97) M/mcL Hgb (11.5-15.4) g/dL Hct (35.3-44.9) % MCV (83.0-100.0) fL MCH (28.0-33.3) pg MCHC (31.6-35.5) g/dL RDW (11.5-14.5) % Plt Count (140-400) K/mcL MPV (9.4-12.4) fL Immature Gran % (0-4) % Seg Neutrophils % % Lymphocytes % % Monocytes % % Eosinophils % % Basophils % % Neutrophils # (1.6-8.9) K/mcL Lymphocytes # (0.6-4.6) K/mcL Monocytes # (0.0-1.3) K/mcL Eosinophils # (0.0-0.6) K/mcL Basophils # (0.0-0.2) K/mcL VBG pH 7.21 L (7.32-7.42) pH Units VBG pCO2 20 L (41-51) mmHg VBG pO2 193 H (25-50) mmHg VBG HCO3 8 L (21-27) mEq/L Sodium 137 (136-145) mEq/L Potassium 4.4 D (3.5-5.1) mEq/L Chloride 110 H (98-107) mEq/L Carbon Dioxide 17 L (23-29) mEq/L BUN 26 H (8-23) mg/dL Creatinine 0.65 (0.60-1.20) mg/dL Est GFR ( Amer) > 60 (> 60) Est GFR (Non-Af Amer) > 60 (> 60) BUN/Creatinine Ratio 40 H (6-26) Glucose 197 H (70-105) mg/dL POC Glucose 149 H (70-99) mg/dL Est Mean Plasma Glucose mg/dl Hemoglobin A1c ( - 5.6) % Calculated Osmolality 294 (280-300) Lactic Acid (0.5-2.2) mmol/L Calcium 8.2 L (8.6-10.3) mg/dL Phosphorus (2.7-4.5) mg/dL Magnesium (1.6-2.6) mg/dL Total Bilirubin (0.3-1.0) mg/dL Direct Bilirubin (0.0-0.2) mg/dL Indirect Bilirubin (0.0-1.2) mg/dL AST (13-39) Units/L ALT (7-52) Units/L Alkaline Phosphatase (34-104) Units/L Troponin I (< 0.04) ng/mL Serum Total Protein (6.4-8.9) g/dL Albumin (3.5-5.7) g/dL Globulin (2.4-3.5) g/dL Albumin/Globulin Ratio (1.1-2.2) Amylase (29-103) Units/L Lipase (11-82) Units/L Beta-Hydroxybutyric Acd (0.02-0.27) mmol/L Urine Color (Yellow) Urine Clarity (Clear) Urine pH (5.0-8.0) pH Units Ur Specific [place] (1.010-1.025) Urine Protein (Neg-Trace) mg/dL Urine Glucose (UA) (Normal) mg/dL Urine Ketones (Negative) mg/dL Urine Blood (Negative) Urine Nitrite (Negative) Urine Bilirubin (Negative) Urine Urobilinogen (Normal) mg/dL Ur Leukocyte Esterase (Negative) Urine Microscopic RBC (0-3) per hpf Urine Microscopic WBC (0-3) per hpf Ur Squamous Epith Cells (None-Few) per lpf Urine Bacteria (None-Few) per hpf Hyaline Casts (None-Few) per lpf Ur Culture Indicated? (NO) Specimen Rejected Person Notif of Crit 09/26/18 09/26/18 09/26/18 Range/Units 01:27 01:32 02:02 WBC (4.3-11.1) K/mcL RBC (3.82-4.97) M/mcL Hgb (11.5-15.4) g/dL Hct (35.3-44.9) % MCV (83.0-100.0) fL MCH (28.0-33.3) pg MCHC (31.6-35.5) g/dL RDW (11.5-14.5) % Plt Count (140-400) K/mcL MPV (9.4-12.4) fL Immature Gran % (0-4) % Seg Neutrophils % % Lymphocytes % % Monocytes % % Eosinophils % % Basophils % % Neutrophils # (1.6-8.9) K/mcL Lymphocytes # (0.6-4.6) K/mcL Monocytes # (0.0-1.3) K/mcL Eosinophils # (0.0-0.6) K/mcL Basophils # (0.0-0.2) K/mcL VBG pH 7.30 L (7.32-7.42) pH Units VBG pCO2 37 L (41-51) mmHg VBG pO2 168 H (25-50) mmHg VBG HCO3 18 L (21-27) mEq/L Sodium (136-145) mEq/L Potassium (3.5-5.1) mEq/L Chloride (98-107) mEq/L Carbon Dioxide (23-29) mEq/L BUN (8-23) mg/dL Creatinine (0.60-1.20) mg/dL Est GFR ( Amer) (> 60) Est GFR (Non-Af Amer) (> 60) BUN/Creatinine Ratio (6-26) Glucose (70-105) mg/dL POC Glucose 172 H 171 H (70-99) mg/dL Est Mean Plasma Glucose mg/dl Hemoglobin A1c ( - 5.6) % Calculated Osmolality (280-300) Lactic Acid (0.5-2.2) mmol/L Calcium (8.6-10.3) mg/dL Phosphorus (2.7-4.5) mg/dL Magnesium (1.6-2.6) mg/dL Total Bilirubin (0.3-1.0) mg/dL Direct Bilirubin (0.0-0.2) mg/dL Indirect Bilirubin (0.0-1.2) mg/dL AST (13-39) Units/L ALT (7-52) Units/L Alkaline Phosphatase (34-104) Units/L Troponin I (< 0.04) ng/mL Serum Total Protein (6.4-8.9) g/dL Albumin (3.5-5.7) g/dL Globulin (2.4-3.5) g/dL Albumin/Globulin Ratio (1.1-2.2) Amylase (29-103) Units/L Lipase (11-82) Units/L Beta-Hydroxybutyric Acd (0.02-0.27) mmol/L Urine Color (Yellow) Urine Clarity (Clear) Urine pH (5.0-8.0) pH Units Ur Specific [place] (1.010-1.025) Urine Protein (Neg-Trace) mg/dL Urine Glucose (UA) (Normal) mg/dL Urine Ketones (Negative) mg/dL Urine Blood (Negative) Urine Nitrite (Negative) Urine Bilirubin (Negative) Urine Urobilinogen (Normal) mg/dL Ur Leukocyte Esterase (Negative) Urine Microscopic RBC (0-3) per hpf Urine Microscopic WBC (0-3) per hpf Ur Squamous Epith Cells (None-Few) per lpf Urine Bacteria (None-Few) per hpf Hyaline Casts (None-Few) per lpf Ur Culture Indicated? (NO) Specimen Rejected Person Notif of Crit 09/26/18 09/26/18 09/26/18 Range/Units 02:56 04:07 05:11 WBC (4.3-11.1) K/mcL RBC (3.82-4.97) M/mcL Hgb (11.5-15.4) g/dL Hct (35.3-44.9) % MCV (83.0-100.0) fL MCH (28.0-33.3) pg MCHC (31.6-35.5) g/dL RDW (11.5-14.5) % Plt Count (140-400) K/mcL MPV (9.4-12.4) fL Immature Gran % (0-4) % Seg Neutrophils % % Lymphocytes % % Monocytes % % Eosinophils % % Basophils % % Neutrophils # (1.6-8.9) K/mcL Lymphocytes # (0.6-4.6) K/mcL Monocytes # (0.0-1.3) K/mcL Eosinophils # (0.0-0.6) K/mcL Basophils # (0.0-0.2) K/mcL VBG pH (7.32-7.42) pH Units VBG pCO2 (41-51) mmHg VBG pO2 (25-50) mmHg VBG HCO3 (21-27) mEq/L Sodium (136-145) mEq/L Potassium (3.5-5.1) mEq/L Chloride (98-107) mEq/L Carbon Dioxide (23-29) mEq/L BUN (8-23) mg/dL Creatinine (0.60-1.20) mg/dL Est GFR ( Amer) (> 60) Est GFR (Non-Af Amer) (> 60) BUN/Creatinine Ratio (6-26) Glucose (70-105) mg/dL POC Glucose 165 H 141 H 125 H (70-99) mg/dL Est Mean Plasma Glucose mg/dl Hemoglobin A1c ( - 5.6) % Calculated Osmolality (280-300) Lactic Acid (0.5-2.2) mmol/L Calcium (8.6-10.3) mg/dL Phosphorus (2.7-4.5) mg/dL Magnesium (1.6-2.6) mg/dL Total Bilirubin (0.3-1.0) mg/dL Direct Bilirubin (0.0-0.2) mg/dL Indirect Bilirubin (0.0-1.2) mg/dL AST (13-39) Units/L ALT (7-52) Units/L Alkaline Phosphatase (34-104) Units/L Troponin I (< 0.04) ng/mL Serum Total Protein (6.4-8.9) g/dL Albumin (3.5-5.7) g/dL Globulin (2.4-3.5) g/dL Albumin/Globulin Ratio (1.1-2.2) Amylase (29-103) Units/L Lipase (11-82) Units/L Beta-Hydroxybutyric Acd (0.02-0.27) mmol/L Urine Color (Yellow) Urine Clarity (Clear) Urine pH (5.0-8.0) pH Units Ur Specific [place] (1.010-1.025) Urine Protein (Neg-Trace) mg/dL Urine Glucose (UA) (Normal) mg/dL Urine Ketones (Negative) mg/dL Urine Blood (Negative) Urine Nitrite (Negative) Urine Bilirubin (Negative) Urine Urobilinogen (Normal) mg/dL Ur Leukocyte Esterase (Negative) Urine Microscopic RBC (0-3) per hpf Urine Microscopic WBC (0-3) per hpf Ur Squamous Epith Cells (None-Few) per lpf Urine Bacteria (None-Few) per hpf Hyaline Casts (None-Few) per lpf Ur Culture Indicated? (NO) Specimen Rejected Person Notif of Crit 09/26/18 09/26/18 09/26/18 Range/Units 05:12 05:12 05:12 WBC (4.3-11.1) K/mcL RBC 4.40 (3.82-4.97) M/mcL Hgb (11.5-15.4) g/dL Hct (35.3-44.9) % MCV 90.5 (83.0-100.0) fL MCH 30.5 (28.0-33.3) pg MCHC 33.7 (31.6-35.5) g/dL RDW 13.5 (11.5-14.5) % Plt Count (140-400) K/mcL MPV 11.0 (9.4-12.4) fL Immature Gran % 0.5 (0-4) % Seg Neutrophils % 78.1 % Lymphocytes % 13.5 % Monocytes % 7.8 % Eosinophils % 0.0 % Basophils % 0.1 % Neutrophils # (1.6-8.9) K/mcL Lymphocytes # 1.4 (0.6-4.6) K/mcL Monocytes # 0.8 (0.0-1.3) K/mcL Eosinophils # 0.0 (0.0-0.6) K/mcL Basophils # 0.0 (0.0-0.2) K/mcL VBG pH (7.32-7.42) pH Units VBG pCO2 (41-51) mmHg VBG pO2 (25-50) mmHg VBG HCO3 (21-27) mEq/L Sodium 135 L (136-145) mEq/L Potassium 4.0 (3.5-5.1) mEq/L Chloride 110 H (98-107) mEq/L Carbon Dioxide 18 L (23-29) mEq/L BUN 22 (8-23) mg/dL Creatinine 0.55 L (0.60-1.20) mg/dL Est GFR ( Amer) > 60 (> 60) Est GFR (Non-Af Amer) > 60 (> 60) BUN/Creatinine Ratio 40 H (6-26) Glucose 156 H (70-105) mg/dL POC Glucose (70-99) mg/dL Est Mean Plasma Glucose 306 mg/dl Hemoglobin A1c 12.3 H ( - 5.6) % Calculated Osmolality 287 (280-300) Lactic Acid (0.5-2.2) mmol/L Calcium 8.1 L (8.6-10.3) mg/dL Phosphorus (2.7-4.5) mg/dL Magnesium (1.6-2.6) mg/dL Total Bilirubin (0.3-1.0) mg/dL Direct Bilirubin (0.0-0.2) mg/dL Indirect Bilirubin (0.0-1.2) mg/dL AST (13-39) Units/L ALT (7-52) Units/L Alkaline Phosphatase (34-104) Units/L Troponin I (< 0.04) ng/mL Serum Total Protein (6.4-8.9) g/dL Albumin (3.5-5.7) g/dL Globulin (2.4-3.5) g/dL Albumin/Globulin Ratio (1.1-2.2) Amylase (29-103) Units/L Lipase (11-82) Units/L Beta-Hydroxybutyric Acd (0.02-0.27) mmol/L Urine Color (Yellow) Urine Clarity (Clear) Urine pH (5.0-8.0) pH Units Ur Specific [place] (1.010-1.025) Urine Protein (Neg-Trace) mg/dL Urine Glucose (UA) (Normal) mg/dL Urine Ketones (Negative) mg/dL Urine Blood (Negative) Urine Nitrite (Negative) Urine Bilirubin (Negative) Urine Urobilinogen (Normal) mg/dL Ur Leukocyte Esterase (Negative) Urine Microscopic RBC (0-3) per hpf Urine Microscopic WBC (0-3) per hpf Ur Squamous Epith Cells (None-Few) per lpf Urine Bacteria (None-Few) per hpf Hyaline Casts (None-Few) per lpf Ur Culture Indicated? (NO) Specimen Rejected Person Notif of Crit 09/26/18 09/26/18 09/26/18 Range/Units 05:31 05:59 06:59 WBC (4.3-11.1) K/mcL RBC (3.82-4.97) M/mcL Hgb (11.5-15.4) g/dL Hct (35.3-44.9) % MCV (83.0-100.0) fL MCH (28.0-33.3) pg MCHC (31.6-35.5) g/dL RDW (11.5-14.5) % Plt Count (140-400) K/mcL MPV (9.4-12.4) fL Immature Gran % (0-4) % Seg Neutrophils % % Lymphocytes % % Monocytes % % Eosinophils % % Basophils % % Neutrophils # (1.6-8.9) K/mcL Lymphocytes # (0.6-4.6) K/mcL Monocytes # (0.0-1.3) K/mcL Eosinophils # (0.0-0.6) K/mcL Basophils # (0.0-0.2) K/mcL VBG pH 7.37 (7.32-7.42) pH Units VBG pCO2 33 L (41-51) mmHg VBG pO2 68 H (25-50) mmHg VBG HCO3 19 L (21-27) mEq/L Sodium (136-145) mEq/L Potassium (3.5-5.1) mEq/L Chloride (98-107) mEq/L Carbon Dioxide (23-29) mEq/L BUN (8-23) mg/dL Creatinine (0.60-1.20) mg/dL Est GFR ( Amer) (> 60) Est GFR (Non-Af Amer) (> 60) BUN/Creatinine Ratio (6-26) Glucose (70-105) mg/dL POC Glucose 149 H 149 H (70-99) mg/dL Est Mean Plasma Glucose mg/dl Hemoglobin A1c ( - 5.6) % Calculated Osmolality (280-300) Lactic Acid (0.5-2.2) mmol/L Calcium (8.6-10.3) mg/dL Phosphorus (2.7-4.5) mg/dL Magnesium (1.6-2.6) mg/dL Total Bilirubin (0.3-1.0) mg/dL Direct Bilirubin (0.0-0.2) mg/dL Indirect Bilirubin (0.0-1.2) mg/dL AST (13-39) Units/L ALT (7-52) Units/L Alkaline Phosphatase (34-104) Units/L Troponin I (< 0.04) ng/mL Serum Total Protein (6.4-8.9) g/dL Albumin (3.5-5.7) g/dL Globulin (2.4-3.5) g/dL Albumin/Globulin Ratio (1.1-2.2) Amylase (29-103) Units/L Lipase (11-82) Units/L Beta-Hydroxybutyric Acd (0.02-0.27) mmol/L Urine Color (Yellow) Urine Clarity (Clear) Urine pH (5.0-8.0) pH Units Ur Specific [place] (1.010-1.025) Urine Protein (Neg-Trace) mg/dL Urine Glucose (UA) (Normal) mg/dL Urine Ketones (Negative) mg/dL Urine Blood (Negative) Urine Nitrite (Negative) Urine Bilirubin (Negative) Urine Urobilinogen (Normal) mg/dL Ur Leukocyte Esterase (Negative) Urine Microscopic RBC (0-3) per hpf Urine Microscopic WBC (0-3) per hpf Ur Squamous Epith Cells (None-Few) per lpf Urine Bacteria (None-Few) per hpf Hyaline Casts (None-Few) per lpf Ur Culture Indicated? (NO) Specimen Rejected Person Notif of Crit 09/26/18 09/26/18 09/26/18 Range/Units 10:34 11:57 16:32 WBC (4.3-11.1) K/mcL RBC (3.82-4.97) M/mcL Hgb (11.5-15.4) g/dL Hct (35.3-44.9) % MCV (83.0-100.0) fL MCH (28.0-33.3) pg MCHC (31.6-35.5) g/dL RDW (11.5-14.5) % Plt Count (140-400) K/mcL MPV (9.4-12.4) fL Immature Gran % (0-4) % Seg Neutrophils % % Lymphocytes % % Monocytes % % Eosinophils % % Basophils % % Neutrophils # (1.6-8.9) K/mcL Lymphocytes # (0.6-4.6) K/mcL Monocytes # (0.0-1.3) K/mcL Eosinophils # (0.0-0.6) K/mcL Basophils # (0.0-0.2) K/mcL VBG pH (7.32-7.42) pH Units VBG pCO2 (41-51) mmHg VBG pO2 (25-50) mmHg VBG HCO3 (21-27) mEq/L Sodium (136-145) mEq/L Potassium (3.5-5.1) mEq/L Chloride (98-107) mEq/L Carbon Dioxide (23-29) mEq/L BUN (8-23) mg/dL Creatinine (0.60-1.20) mg/dL Est GFR ( Amer) (> 60) Est GFR (Non-Af Amer) (> 60) BUN/Creatinine Ratio (6-26) Glucose (70-105) mg/dL POC Glucose 139 H 120 H 201 H (70-99) mg/dL Est Mean Plasma Glucose mg/dl Hemoglobin A1c ( - 5.6) % Calculated Osmolality (280-300) Lactic Acid (0.5-2.2) mmol/L Calcium (8.6-10.3) mg/dL Phosphorus (2.7-4.5) mg/dL Magnesium (1.6-2.6) mg/dL Total Bilirubin (0.3-1.0) mg/dL Direct Bilirubin (0.0-0.2) mg/dL Indirect Bilirubin (0.0-1.2) mg/dL AST (13-39) Units/L ALT (7-52) Units/L Alkaline Phosphatase (34-104) Units/L Troponin I (< 0.04) ng/mL Serum Total Protein (6.4-8.9) g/dL Albumin (3.5-5.7) g/dL Globulin (2.4-3.5) g/dL Albumin/Globulin Ratio (1.1-2.2) Amylase (29-103) Units/L Lipase (11-82) Units/L Beta-Hydroxybutyric Acd (0.02-0.27) mmol/L Urine Color (Yellow) Urine Clarity (Clear) Urine pH (5.0-8.0) pH Units Ur Specific [place] (1.010-1.025) Urine Protein (Neg-Trace) mg/dL Urine Glucose (UA) (Normal) mg/dL Urine Ketones (Negative) mg/dL Urine Blood (Negative) Urine Nitrite (Negative) Urine Bilirubin (Negative) Urine Urobilinogen (Normal) mg/dL Ur Leukocyte Esterase (Negative) Urine Microscopic RBC (0-3) per hpf Urine Microscopic WBC (0-3) per hpf Ur Squamous Epith Cells (None-Few) per lpf Urine Bacteria (None-Few) per hpf Hyaline Casts (None-Few) per lpf Ur Culture Indicated? (NO) Specimen Rejected Person Notif of Crit 09/26/18 09/26/18 09/27/18 Range/Units 19:54 21:40 07:43 WBC (4.3-11.1) K/mcL RBC (3.82-4.97) M/mcL Hgb (11.5-15.4) g/dL Hct (35.3-44.9) % MCV (83.0-100.0) fL MCH (28.0-33.3) pg MCHC (31.6-35.5) g/dL RDW (11.5-14.5) % Plt Count (140-400) K/mcL MPV (9.4-12.4) fL Immature Gran % (0-4) % Seg Neutrophils % % Lymphocytes % % Monocytes % % Eosinophils % % Basophils % % Neutrophils # (1.6-8.9) K/mcL Lymphocytes # (0.6-4.6) K/mcL Monocytes # (0.0-1.3) K/mcL Eosinophils # (0.0-0.6) K/mcL Basophils # (0.0-0.2) K/mcL VBG pH (7.32-7.42) pH Units VBG pCO2 (41-51) mmHg VBG pO2 (25-50) mmHg VBG HCO3 (21-27) mEq/L Sodium (136-145) mEq/L Potassium (3.5-5.1) mEq/L Chloride (98-107) mEq/L Carbon Dioxide (23-29) mEq/L BUN (8-23) mg/dL Creatinine (0.60-1.20) mg/dL Est GFR ( Amer) (> 60) Est GFR (Non-Af Amer) (> 60) BUN/Creatinine Ratio (6-26) Glucose (70-105) mg/dL POC Glucose 175 H 198 H (70-99) mg/dL Est Mean Plasma Glucose mg/dl Hemoglobin A1c ( - 5.6) % Calculated Osmolality (280-300) Lactic Acid (0.5-2.2) mmol/L Calcium (8.6-10.3) mg/dL Phosphorus (2.7-4.5) mg/dL Magnesium (1.6-2.6) mg/dL Total Bilirubin (0.3-1.0) mg/dL Direct Bilirubin (0.0-0.2) mg/dL Indirect Bilirubin (0.0-1.2) mg/dL AST (13-39) Units/L ALT (7-52) Units/L Alkaline Phosphatase (34-104) Units/L Troponin I 0.03 (< 0.04) ng/mL Serum Total Protein (6.4-8.9) g/dL Albumin (3.5-5.7) g/dL Globulin (2.4-3.5) g/dL Albumin/Globulin Ratio (1.1-2.2) Amylase (29-103) Units/L Lipase (11-82) Units/L Beta-Hydroxybutyric Acd (0.02-0.27) mmol/L Urine Color (Yellow) Urine Clarity (Clear) Urine pH (5.0-8.0) pH Units Ur Specific [place] (1.010-1.025) Urine Protein (Neg-Trace) mg/dL Urine Glucose (UA) (Normal) mg/dL Urine Ketones (Negative) mg/dL Urine Blood (Negative) Urine Nitrite (Negative) Urine Bilirubin (Negative) Urine Urobilinogen (Normal) mg/dL Ur Leukocyte Esterase (Negative) Urine Microscopic RBC (0-3) per hpf Urine Microscopic WBC (0-3) per hpf Ur Squamous Epith Cells (None-Few) per lpf Urine Bacteria (None-Few) per hpf Hyaline Casts (None-Few) per lpf Ur Culture Indicated? (NO) Specimen Rejected Person Notif of Crit 09/27/18 09/27/18 09/27/18 Range/Units 11:28 17:11 21:12 WBC (4.3-11.1) K/mcL RBC (3.82-4.97) M/mcL Hgb (11.5-15.4) g/dL Hct (35.3-44.9) % MCV (83.0-100.0) fL MCH (28.0-33.3) pg MCHC (31.6-35.5) g/dL RDW (11.5-14.5) % Plt Count (140-400) K/mcL MPV (9.4-12.4) fL Immature Gran % (0-4) % Seg Neutrophils % % Lymphocytes % % Monocytes % % Eosinophils % % Basophils % % Neutrophils # (1.6-8.9) K/mcL Lymphocytes # (0.6-4.6) K/mcL Monocytes # (0.0-1.3) K/mcL Eosinophils # (0.0-0.6) K/mcL Basophils # (0.0-0.2) K/mcL VBG pH (7.32-7.42) pH Units VBG pCO2 (41-51) mmHg VBG pO2 (25-50) mmHg VBG HCO3 (21-27) mEq/L Sodium (136-145) mEq/L Potassium (3.5-5.1) mEq/L Chloride (98-107) mEq/L Carbon Dioxide (23-29) mEq/L BUN (8-23) mg/dL Creatinine (0.60-1.20) mg/dL Est GFR ( Amer) (> 60) Est GFR (Non-Af Amer) (> 60) BUN/Creatinine Ratio (6-26) Glucose (70-105) mg/dL POC Glucose 174 H 154 H 175 H (70-99) mg/dL Est Mean Plasma Glucose mg/dl Hemoglobin A1c ( - 5.6) % Calculated Osmolality (280-300) Lactic Acid (0.5-2.2) mmol/L Calcium (8.6-10.3) mg/dL Phosphorus (2.7-4.5) mg/dL Magnesium (1.6-2.6) mg/dL Total Bilirubin (0.3-1.0) mg/dL Direct Bilirubin (0.0-0.2) mg/dL Indirect Bilirubin (0.0-1.2) mg/dL AST (13-39) Units/L ALT (7-52) Units/L Alkaline Phosphatase (34-104) Units/L Troponin I (< 0.04) ng/mL Serum Total Protein (6.4-8.9) g/dL Albumin (3.5-5.7) g/dL Globulin (2.4-3.5) g/dL Albumin/Globulin Ratio (1.1-2.2) Amylase (29-103) Units/L Lipase (11-82) Units/L Beta-Hydroxybutyric Acd (0.02-0.27) mmol/L Urine Color (Yellow) Urine Clarity (Clear) Urine pH (5.0-8.0) pH Units Ur Specific [place] (1.010-1.025) Urine Protein (Neg-Trace) mg/dL Urine Glucose (UA) (Normal) mg/dL Urine Ketones (Negative) mg/dL Urine Blood (Negative) Urine Nitrite (Negative) Urine Bilirubin (Negative) Urine Urobilinogen (Normal) mg/dL Ur Leukocyte Esterase (Negative) Urine Microscopic RBC (0-3) per hpf Urine Microscopic WBC (0-3) per hpf Ur Squamous Epith Cells (None-Few) per lpf Urine Bacteria (None-Few) per hpf Hyaline Casts (None-Few) per lpf Ur Culture Indicated? (NO) Specimen Rejected Person Notif of Crit 09/28/18 09/28/18 09/28/18 Range/Units 05:42 05:42 07:36 WBC (4.3-11.1) K/mcL RBC 4.42 (3.82-4.97) M/mcL Hgb (11.5-15.4) g/dL Hct (35.3-44.9) % MCV 87.6 (83.0-100.0) fL MCH 29.9 (28.0-33.3) pg MCHC 34.1 (31.6-35.5) g/dL RDW 13.4 (11.5-14.5) % Plt Count (140-400) K/mcL MPV 10.8 (9.4-12.4) fL Immature Gran % 0.2 (0-4) % Seg Neutrophils % 58.7 % Lymphocytes % 29.6 % Monocytes % 11.3 % Eosinophils % 0.1 % Basophils % 0.1 % Neutrophils # (1.6-8.9) K/mcL Lymphocytes # 2.4 (0.6-4.6) K/mcL Monocytes # 0.9 (0.0-1.3) K/mcL Eosinophils # 0.0 (0.0-0.6) K/mcL Basophils # 0.0 (0.0-0.2) K/mcL VBG pH (7.32-7.42) pH Units VBG pCO2 (41-51) mmHg VBG pO2 (25-50) mmHg VBG HCO3 (21-27) mEq/L Sodium 133 L (136-145) mEq/L Potassium 3.0 L (3.5-5.1) mEq/L Chloride 99 (98-107) mEq/L Carbon Dioxide 22 L (23-29) mEq/L BUN 25 H (8-23) mg/dL Creatinine 0.76 (0.60-1.20) mg/dL Est GFR ( Amer) > 60 (> 60) Est GFR (Non-Af Amer) > 60 (> 60) BUN/Creatinine Ratio 33 H (6-26) Glucose 227 H (70-105) mg/dL POC Glucose 162 H (70-99) mg/dL Est Mean Plasma Glucose mg/dl Hemoglobin A1c ( - 5.6) % Calculated Osmolality 288 (280-300) Lactic Acid (0.5-2.2) mmol/L Calcium 8.2 L (8.6-10.3) mg/dL Phosphorus (2.7-4.5) mg/dL Magnesium (1.6-2.6) mg/dL Total Bilirubin (0.3-1.0) mg/dL Direct Bilirubin (0.0-0.2) mg/dL Indirect Bilirubin (0.0-1.2) mg/dL AST (13-39) Units/L ALT (7-52) Units/L Alkaline Phosphatase (34-104) Units/L Troponin I (< 0.04) ng/mL Serum Total Protein (6.4-8.9) g/dL Albumin (3.5-5.7) g/dL Globulin (2.4-3.5) g/dL Albumin/Globulin Ratio (1.1-2.2) Amylase (29-103) Units/L Lipase (11-82) Units/L Beta-Hydroxybutyric Acd (0.02-0.27) mmol/L Urine Color (Yellow) Urine Clarity (Clear) Urine pH (5.0-8.0) pH Units Ur Specific [place] (1.010-1.025) Urine Protein (Neg-Trace) mg/dL Urine Glucose (UA) (Normal) mg/dL Urine Ketones (Negative) mg/dL Urine Blood (Negative) Urine Nitrite (Negative) Urine Bilirubin (Negative) Urine Urobilinogen (Normal) mg/dL Ur Leukocyte Esterase (Negative) Urine Microscopic RBC (0-3) per hpf Urine Microscopic WBC (0-3) per hpf Ur Squamous Epith Cells (None-Few) per lpf Urine Bacteria (None-Few) per hpf Hyaline Casts (None-Few) per lpf Ur Culture Indicated? (NO) Specimen Rejected Person Notif of Crit 09/28/18 09/28/18 09/28/18 Range/Units 12:16 16:34 20:41 WBC (4.3-11.1) K/mcL RBC (3.82-4.97) M/mcL Hgb (11.5-15.4) g/dL Hct (35.3-44.9) % MCV (83.0-100.0) fL MCH (28.0-33.3) pg MCHC (31.6-35.5) g/dL RDW (11.5-14.5) % Plt Count (140-400) K/mcL MPV (9.4-12.4) fL Immature Gran % (0-4) % Seg Neutrophils % % Lymphocytes % % Monocytes % % Eosinophils % % Basophils % % Neutrophils # (1.6-8.9) K/mcL Lymphocytes # (0.6-4.6) K/mcL Monocytes # (0.0-1.3) K/mcL Eosinophils # (0.0-0.6) K/mcL Basophils # (0.0-0.2) K/mcL VBG pH (7.32-7.42) pH Units VBG pCO2 (41-51) mmHg VBG pO2 (25-50) mmHg VBG HCO3 (21-27) mEq/L Sodium (136-145) mEq/L Potassium (3.5-5.1) mEq/L Chloride (98-107) mEq/L Carbon Dioxide (23-29) mEq/L BUN (8-23) mg/dL Creatinine (0.60-1.20) mg/dL Est GFR ( Amer) (> 60) Est GFR (Non-Af Amer) (> 60) BUN/Creatinine Ratio (6-26) Glucose (70-105) mg/dL POC Glucose 121 H 215 H 168 H (70-99) mg/dL Est Mean Plasma Glucose mg/dl Hemoglobin A1c ( - 5.6) % Calculated Osmolality (280-300) Lactic Acid (0.5-2.2) mmol/L Calcium (8.6-10.3) mg/dL Phosphorus (2.7-4.5) mg/dL Magnesium (1.6-2.6) mg/dL Total Bilirubin (0.3-1.0) mg/dL Direct Bilirubin (0.0-0.2) mg/dL Indirect Bilirubin (0.0-1.2) mg/dL AST (13-39) Units/L ALT (7-52) Units/L Alkaline Phosphatase (34-104) Units/L Troponin I (< 0.04) ng/mL Serum Total Protein (6.4-8.9) g/dL Albumin (3.5-5.7) g/dL Globulin (2.4-3.5) g/dL Albumin/Globulin Ratio (1.1-2.2) Amylase (29-103) Units/L Lipase (11-82) Units/L Beta-Hydroxybutyric Acd (0.02-0.27) mmol/L Urine Color (Yellow) Urine Clarity (Clear) Urine pH (5.0-8.0) pH Units Ur Specific [place] (1.010-1.025) Urine Protein (Neg-Trace) mg/dL Urine Glucose (UA) (Normal) mg/dL Urine Ketones (Negative) mg/dL Urine Blood (Negative) Urine Nitrite (Negative) Urine Bilirubin (Negative) Urine Urobilinogen (Normal) mg/dL Ur Leukocyte Esterase (Negative) Urine Microscopic RBC (0-3) per hpf Urine Microscopic WBC (0-3) per hpf Ur Squamous Epith Cells (None-Few) per lpf Urine Bacteria (None-Few) per hpf Hyaline Casts (None-Few) per lpf Ur Culture Indicated? (NO) Specimen Rejected Person Notif of Crit 09/29/18 09/29/18 09/30/18 Range/Units 08:05 21:53 06:20 WBC 8.2 (4.3-11.1) K/mcL RBC 4.05 (3.82-4.97) M/mcL Hgb 12.3 (11.5-15.4) g/dL Hct 35.6 (35.3-44.9) % MCV 87.9 (83.0-100.0) fL MCH 30.4 (28.0-33.3) pg MCHC 34.6 (31.6-35.5) g/dL RDW 12.9 (11.5-14.5) % Plt Count 189 (140-400) K/mcL MPV 10.8 (9.4-12.4) fL Immature Gran % 0.2 (0-4) % Seg Neutrophils % 64.7 % Lymphocytes % 27.6 % Monocytes % 6.8 % Eosinophils % 0.5 % Basophils % 0.2 % Neutrophils # 5.3 (1.6-8.9) K/mcL Lymphocytes # 2.3 (0.6-4.6) K/mcL Monocytes # 0.6 (0.0-1.3) K/mcL Eosinophils # 0.0 (0.0-0.6) K/mcL Basophils # 0.0 (0.0-0.2) K/mcL VBG pH (7.32-7.42) pH Units VBG pCO2 (41-51) mmHg VBG pO2 (25-50) mmHg VBG HCO3 (21-27) mEq/L Sodium (136-145) mEq/L Potassium (3.5-5.1) mEq/L Chloride (98-107) mEq/L Carbon Dioxide (23-29) mEq/L BUN (8-23) mg/dL Creatinine (0.60-1.20) mg/dL Est GFR ( Amer) (> 60) Est GFR (Non-Af Amer) (> 60) BUN/Creatinine Ratio (6-26) Glucose (70-105) mg/dL POC Glucose 109 H 229 H (70-99) mg/dL Est Mean Plasma Glucose mg/dl Hemoglobin A1c ( - 5.6) % Calculated Osmolality (280-300) Lactic Acid (0.5-2.2) mmol/L Calcium (8.6-10.3) mg/dL Phosphorus (2.7-4.5) mg/dL Magnesium (1.6-2.6) mg/dL Total Bilirubin (0.3-1.0) mg/dL Direct Bilirubin (0.0-0.2) mg/dL Indirect Bilirubin (0.0-1.2) mg/dL AST (13-39) Units/L ALT (7-52) Units/L Alkaline Phosphatase (34-104) Units/L Troponin I (< 0.04) ng/mL Serum Total Protein (6.4-8.9) g/dL Albumin (3.5-5.7) g/dL Globulin (2.4-3.5) g/dL Albumin/Globulin Ratio (1.1-2.2) Amylase (29-103) Units/L Lipase (11-82) Units/L Beta-Hydroxybutyric Acd (0.02-0.27) mmol/L Urine Color (Yellow) Urine Clarity (Clear) Urine pH (5.0-8.0) pH Units Ur Specific [place] (1.010-1.025) Urine Protein (Neg-Trace) mg/dL Urine Glucose (UA) (Normal) mg/dL Urine Ketones (Negative) mg/dL Urine Blood (Negative) Urine Nitrite (Negative) Urine Bilirubin (Negative) Urine Urobilinogen (Normal) mg/dL Ur Leukocyte Esterase (Negative) Urine Microscopic RBC (0-3) per hpf Urine Microscopic WBC (0-3) per hpf Ur Squamous Epith Cells (None-Few) per lpf Urine Bacteria (None-Few) per hpf Hyaline Casts (None-Few) per lpf Ur Culture Indicated? (NO) Specimen Rejected Person Notif of Crit 09/30/18 Range/Units 06:20 WBC (4.3-11.1) K/mcL RBC (3.82-4.97) M/mcL Hgb (11.5-15.4) g/dL Hct (35.3-44.9) % MCV (83.0-100.0) fL MCH (28.0-33.3) pg MCHC (31.6-35.5) g/dL RDW (11.5-14.5) % Plt Count (140-400) K/mcL MPV (9.4-12.4) fL Immature Gran % (0-4) % Seg Neutrophils % % Lymphocytes % % Monocytes % % Eosinophils % % Basophils % % Neutrophils # (1.6-8.9) K/mcL Lymphocytes # (0.6-4.6) K/mcL Monocytes # (0.0-1.3) K/mcL Eosinophils # (0.0-0.6) K/mcL Basophils # (0.0-0.2) K/mcL VBG pH (7.32-7.42) pH Units VBG pCO2 (41-51) mmHg VBG pO2 (25-50) mmHg VBG HCO3 (21-27) mEq/L Sodium 137 (136-145) mEq/L Potassium 3.3 L (3.5-5.1) mEq/L Chloride 102 (98-107) mEq/L Carbon Dioxide 27 (23-29) mEq/L BUN 12 (8-23) mg/dL Creatinine 0.30 L (0.60-1.20) mg/dL Est GFR ( Amer) > 60 (> 60) Est GFR (Non-Af Amer) > 60 (> 60) BUN/Creatinine Ratio 40 H (6-26) Glucose 123 H (70-105) mg/dL POC Glucose (70-99) mg/dL Est Mean Plasma Glucose mg/dl Hemoglobin A1c ( - 5.6) % Calculated Osmolality 285 (280-300) Lactic Acid (0.5-2.2) mmol/L Calcium 8.5 L (8.6-10.3) mg/dL Phosphorus (2.7-4.5) mg/dL Magnesium (1.6-2.6) mg/dL Total Bilirubin (0.3-1.0) mg/dL Direct Bilirubin (0.0-0.2) mg/dL Indirect Bilirubin (0.0-1.2) mg/dL AST (13-39) Units/L ALT (7-52) Units/L Alkaline Phosphatase (34-104) Units/L Troponin I (< 0.04) ng/mL Serum Total Protein (6.4-8.9) g/dL Albumin (3.5-5.7) g/dL Globulin (2.4-3.5) g/dL Albumin/Globulin Ratio (1.1-2.2) Amylase (29-103) Units/L Lipase (11-82) Units/L Beta-Hydroxybutyric Acd (0.02-0.27) mmol/L Urine Color (Yellow) Urine Clarity (Clear) Urine pH (5.0-8.0) pH Units Ur Specific [place] (1.010-1.025) Urine Protein (Neg-Trace) mg/dL Urine Glucose (UA) (Normal) mg/dL Urine Ketones (Negative) mg/dL Urine Blood (Negative) Urine Nitrite (Negative) Urine Bilirubin (Negative) Urine Urobilinogen (Normal) mg/dL Ur Leukocyte Esterase (Negative) Urine Microscopic RBC (0-3) per hpf Urine Microscopic WBC (0-3) per hpf Ur Squamous Epith Cells (None-Few) per lpf Urine Bacteria (None-Few) per hpf Hyaline Casts (None-Few) per lpf Ur Culture Indicated? (NO) Specimen Rejected Person Notif of Crit BMP 09/30/18 06:20 Sodium 137 Potassium 3.3 L Chloride 102 Carbon Dioxide 27 BUN 12 Creatinine 0.30 L Glucose 123 H Calcium 8.5 L - VTE Deep Vein Thrombosis/Pulmonary Embolism Present on Admission: No Consult Discharge Plan - Plan Referrals: Corina Jackson MD [Primary Care Provider] - (1) Type 2 diabetes mellitus Qualifiers: Diabetes mellitus ocean transportation intermediary insulin use: with retirement use Diabetes mellitus complication status: with hyperglycemia Qualified Code(s): E11.65 - Type 2 diabetes mellitus with hyperglycemia; Z79.4 - alf (current) use of insulin (2) CAD (coronary artery disease) Qualifiers: Coronary Disease-Associated Artery/Lesion type: [place] artery [place] vs. transplanted heart: [place] heart Associated angina: without angina Qualified Code(s): I25.10 - Atherosclerotic heart disease of [place] coronary artery with out angina pectoris (3) HTN (hypertension) Qualifiers: Hypertension type: essential hypertension Qualified Code(s): I10 - Essential (primary) hypertension (6) GERD (gastroesophageal reflux disease) Qualifiers: Esophagitis presence: with esophagitis Qualified Code(s): K21.0 - Gastro-eso phageal reflux disease with esophagitis (7) Chest pain Qualifiers: Chest pain type: precordial pain Qualified Code(s): R07.2 - Precordial pain
[2018-09-30] MEDS: Pantoprazole 40 MG VIAL IVP SCH (16:42)
--- NOTE | 2018-09-30 20:51 | Electrocardiograph Report ---
[place] [id number] Test Date: 2018-09-27 Pat Name: Erendira Valencia Department: 114 Room: [facility] Gender: F [employer]: [id number] : 1960 Requested By: Xavi Mittal Order Number: [id number] Reading MD: Esme Irby Measurements Intervals [place] Rate: 95 P: 74 [place]: 170 QRS: 59 QRSD: 88 T: 72 QT: 356 QTc: 409 Interpretive Statements SINUS RHYTHM POSSIBLE RIGHT ATRIAL ENLARGEMENT LEFT ATRIAL ENLARGEMENT NONSPECIFIC T-WAVE ABNORMALITY Electronically Signed On 09-30-2018 20:49:01 EST by Esme Irby
[2018-09-30] MEDS: Insulin DETEMIR 100 UNIT/ML X5UNITS SQ SCH (23:19)
[2018-10-01] MEDS: *HR* Enoxaparin 40 MG/0.4 ML SYRINGE SQ SCH (05:51)
[2018-10-01] MEDS: Pantoprazole 40 MG VIAL IVP SCH ×2 (05:58→17:14)
[2018-10-01] MEDS ORDERED: Regadenoson 0.4 MG/5 ML SYRINGE IVP ONE (06:03)
[2018-10-01] MEDS: Insulin LISPRO 300 UNITS/3 ML VIAL SQ SCH ×7 (07:24→20:19)
[2018-10-01] MEDS: Nicotine 7 MG PATCH.TD24 TD SCH (10:07)
[2018-10-01] MEDS: Aspirin Enteric Coated 81 MG Tablet PO SCH (10:08)
--- NOTE | 2018-10-01 15:34 | Internal Med Progress Note ---
Hospitalist Progress Note - Encounter Date of Encounter: 10/01/18 Time of Encounter: 11:40 - Subjective Interval History: Patient underwent cardiac stress test today. She reports that after stress test, she felt very anxious but has been doing better since then. She feels hungry. No new episodes of chest pain. No palpitations. - Exam Vitals: Temp Pulse Resp BP Pulse Ox 98.2 F 114 18 135/71 99 10/01/18 03:45 10/01/18 10:12 10/01/18 10:12 10/01/18 10:12 10/01/18 10:12 Exam: General: Patient is alert, mild distress, oriented x 3 ENT: Mucous membranes moist Respiratory: Good respiratory effort. Normal breath sounds. No wheezing or crackles. Cardiovascular: Regular rate and rhythm. s1 and s2 normal No clicks, rubs, gallops, or murmurs. No pedal edema Abdomen: Abdomen is soft, nontender. Bowel sounds are present Musculoskeletal: Spontaneously moving all extremities Skin: warm, dry, intact. Neuro: Alert oriented x 3 normal cranial nerves, no focal deficits - Assessment and Plan (1) Chest pain Current Visit: Yes Status: Acute Assessment and Plan: With abnormal cardiac stress test suggestive of ischemia. Cardiology consulted. Moderate risk for complications. (2) CAD (coronary artery disease) Current Visit: Yes Status: Chronic Assessment and Plan: With chest pain. Stress test was abnormal. Consulted cardiology for recommendations. Continue aspirin, Plavix and statin. (3) Type 2 diabetes mellitus Current Visit: Yes Status: Acute Assessment and Plan: With acute DKA. DKA resolved. Continue current insulin regimen. Diabetic diet. (4) HTN (hypertension) Current Visit: Yes Status: Chronic Assessment and Plan: Controlled. Continue current medications (5) Epigastric abdominal pain Current Visit: Yes Status: Acute Assessment and Plan: Due to duodenal ulcers. Continue PPI and Carafate. (6) Duodenal ulcer disease Current Visit: Yes Status: Acute Assessment and Plan: Acute duodenal ulcers. Continue PPI and Carafate (7) GERD (gastroesophageal reflux disease) Current Visit: Yes Status: Chronic DVT Prophylaxis: On subcutaneous Lovenox - Time Spent with Patient Total time spent is greater than 50% in coordination of care (as documented) at patient's floor/unit and/or counseling patient: Internal Medicine: Result - Labs CBC & Chem 7: 09/30/18 06:20 09/30/18 06:20 Labs: Cardiac Enzymes 09/30/18 Range/Units 15:36 Troponin I 0.03 (< 0.04) ng/mL - VTE Deep Vein Thrombosis/Pulmonary Embolism Present on Admission: No Consult Discharge Plan - Plan Referrals: Corina Jackson MD [Primary Care Provider] - (1) Chest pain Qualifiers: Chest pain type: precordial pain Qualified Code(s): R07.2 - Precordial pain (2) CAD (coronary artery disease) Qualifiers: Coronary Disease-Associated Artery/Lesion type: [place] artery [place] vs. transplanted heart: [place] heart Associated angina: without angina Qualified Code(s): I25.10 - Atherosclerotic heart disease of [place] coronary artery without angina pectoris (3) Type 2 diabetes mellitus Qualifiers: Diabetes mellitus [place] insulin use: with [place] use Diabetes mellitus complication status: with hyperglycemia Qualified Code(s): E11.65 - Type 2 diabetes mellitus with hyperglycemia; Z79.4 - manager intermediate (current) use of insulin (4) HTN (hypertension) Qualifiers: Hypertension type: essential hypertension Qualified Code(s): I10 - Essential (primary) hypertension (7) GERD (gastroesophageal reflux disease) Qualifiers: Esophagitis presence: with esophagitis Qualified Code(s): K21.0 - Gastro- esophageal reflux disease with esophagitis
[2018-10-01] MEDS: Insulin DETEMIR 100 UNIT/ML X5UNITS SQ SCH (20:40)
[2018-10-02] MEDS: Pantoprazole 40 MG VIAL IVP SCH (06:15)
[2018-10-02] MEDS: *HR* Enoxaparin 40 MG/0.4 ML SYRINGE SQ SCH (06:15)
[2018-10-02] MEDS: Insulin LISPRO 300 UNITS/3 ML VIAL SQ SCH ×4 (08:00→13:01)
--- NOTE | 2018-10-02 09:32 | Cardiology Consult Note ---
Addendum entered and electronically signed by Antolin Wright MD 10/02/18 14:14: I have personally performed a face to face evaluation on this patient. I have reviewed and agree with the care plan. History and Exam by me shows: Known CAD, presented with multiple complaints. Stress test borderline abnormal. She prefers outpt. follow up. This is reasonable. Original Note: Date of Encounter: 10/02/18 Time of Encounter: 09:32 Assessment and Plan (1) Abnormal stress test Current Visit: Yes Status: Acute Stress test ordered for chest pain. Reports one episode of chest pain a couple days ago described as midsternal pressure. She is now chest pain free. Stress test reviewed with patient. There was a small mild perfusion defect in the mid inferior lateral wall with stress that may represent possible ischemia. ECG was non-diagnostic. EF 70%. Patient has history of CAD s/p 3V CABG and prior PCI. No records here to compare stress test findings. Patient is adamant that she follows with her document preparer microfilming Dr. Montes De Oca to discuss. This is reasonable since she is chest pain free and stress test findings are low risk. Continue asa, plavix, statin, and bb. NTG SL PRN chest pain. Instructed to return to hospital with recurrent or worsening chest pain. Patient trying to leave hospital on my exam. Recommended she wait until she was seen by the document preparer microfilming prior to d/c. She is considering. (2) CAD (coronary artery disease) Current Visit: Yes Status: Chronic See plan above. Qualifiers: Coronary Disease-Associated Artery/Lesion type: [place] artery [place] vs. transplanted heart: [place] heart Associated angina: without angina Qualified Code(s): I25.10 - Atherosclerotic heart disease of [place] coronary artery without angina pectoris Discussion w patient/family: The assessment and plan as outlined above was discussed with the patient and/or family members who expressed understanding and agreement. All questions were answered. Thank you for involving us in the care of your patient. Please call with any questions. History of Present Illness Consult date: 10/02/18 Requesting physician: Izabella Valenica Consult reason: Chest pain Chief complaint: Presented with N/V DKA, c/o chest pain during stay History of present illness: Ms. Valencia is a 58 year old female with past medical history of CAD s/p 3V CABG, multiple prior PCI, and DM who presented to the hospital with nausea, vomiting, and abdominal pain. She was found to have DKA, gastritis, and duodenal ulcers by EGD. She says she stopped all of her narcotic and insulin to detox her body and that may have caused her problem. During her stay she c/o chest pressure. A stress test was ordered and found to be mildly abnormal. She follows with Dr. Montes De Oca at [facility]. On my exam she appears to be mildly confused. She says she is anxious to go home and was planning on possibly leaving AMA. She would like to follow with her document preparer microfilming Dr. Montes De Oca to discuss stress test. She denies chest pain currently. She says she may have had some chest pressure a couple days ago but she cannot remember. It is noted that she was evaluated a couple weeks ago for elevated troponin in the setting of HTN emergency. TTE completed at that time sowed preserved EF. She was scheduled to see her document preparer microfilming after her visit but missed the appointment due to being back here for DKA. Past Med Surg Social Fam HX - Past Medical History Medical history: asthma, cancer, COPD, coronary artery disease, CVA, diabetes, GERD, kidney stones, myocardial infarction Psychiatric history: bipolar, depression - Past Surgical History Surgical History: angioplasty/stent, breast surgery, , coronary bypass (CABG) Additional surgical history: RIGHT BREAST MASTECTOMY, TRIPLE BYPASS, CARDIAC STENTS - Social History Smoking Status: Current every day smoker Smokeless Tobacco Status: No Alcohol use: none Drug use: none - Family History Mother Living Status: Hx Family Respiratory Disorders: Yes (COPD) Father Living Status: Hx Family Cancer: Yes Medications and Allergies Albuterol Sulfate [Ventolin Hfa] 1 puff IH Q4H PRN 09/17/18 [History] Oxygen 2 l NS HS 09/17/18 [History] Quetiapine Fumarate [Seroquel] 400 mg PO HS 09/17/18 [History] Aspirin [Lo-Dose Aspirin EC] 81 mg PO DAILY #30 tablet. 10/02/18 [Rx] Clopidogrel [Plavix] 75 mg PO DAILY #30 tablet 10/02/18 [Rx] Insulin Glargine,Hum.rec.anlog [Basaglar Kwikpen U-100] 15 unit SQ HS #3 insuln.pen 10/02/18 [Rx] Metoprolol [Lopressor] 50 mg PO BID #60 tablet 10/02/18 [Rx] Pantoprazole Sodium [Protonix] 40 mg PO DAILY #30 granpkt. 10/02/18 [Rx] Rosuvastatin Calcium 40 mg PO DAILY #30 tablet 10/02/18 [Rx] Sucralfate [Carafate] 1 gm PO QIDAC #120 tablet 10/02/18 [Rx] Allergy/AdvReac Type Severity Reaction Status Date / Time prochlorperazine Allergy Seizure Verified 09/27/18 11:35 [From Compazine] All Systems Review: The remainder of the systems were reviewed and are negative Physical Examination Vital Signs, Last 4 Hours Pulse Resp BP Pulse Ox 10/02/18 08:17 91 14 97/63 95 General: Conversant, No Apparent Distress, Other (appears anxious) HEENT: Atraumatic, Normocephaly, Mucus Membranes Moist Neck: No JVD, Normal carotid pulses Cardiac: Reg Rate and Rhythm, Normal S1 and S2, No Murmur Lungs: Normal Breath Sounds, No Wheeze, Rales, Rhonchi Neuro: Alert and responsive, No focal deficits noted, Other (Confusion, inability to concentrate) Abdomen: Soft, Non-Tender Skin: No rashes noted on visualized skin Musculoskeletal: No Chest Wall Tenderness Extremities: No Clubbing, No Cyanosis, No Edema, Normal Pulses Results 09/30/18 06:20 09/30/18 06:20 - Imaging and Cardiology Stress Test: report reviewed - EKG Interpretation EKG results cardiology: personally reviewed Consult Discharge Plan - Plan Referrals: Corina Jackson MD [Primary Care Provider] - Prescriptions: Aspirin [Lo-Dose Aspirin EC] 81 mg PO DAILY #30 tablet. Clopidogrel [Plavix] 75 mg PO DAILY #30 tablet Insulin Glargine,Hum.rec.anlog [Basaglar Kwikpen U-100] 15 unit SQ HS #3 insuln.pen Metoprolol [Lopressor] 50 mg PO BID #60 tablet Pantoprazole Sodium [Protonix] 40 mg PO DAILY #30 granpkt. Rosuvastatin Calcium 40 mg PO DAILY #30 tablet Sucralfate [Carafate] 1 gm PO QIDAC #120 tablet
[2018-10-02] MEDS: Nicotine 7 MG PATCH.TD24 TD SCH (10:22)
[2018-10-02] MEDS: Aspirin Enteric Coated 81 MG Tablet PO SCH (10:34)
[2018-10-02 12:20] VITALS: BP 116/75
--- NOTE | 2018-10-02 13:56 | Discharge Summary ---
- NOTES TO OUTPATIENT PROVIDER Notes to Outpatient Provider: Patient with a history of diabetes mellitus type 2 was hospitalized here initially with acute diabetic ketoacidosis. Patient was placed on DKA protocol with IV insulin and fluids with improvement and resolution of her DKA. She had complained of epigastric pain and intractable vomiting. She underwent upper GI endoscopy which showed duodenal ulcers. Patient has been placed on Protonix and Carafate for this. She also complained of chest pain and so underwent cardiac stress test which was abnormal with a small size mild intensity perfusion defect in the mid inferolateral wall. Her chest pain has now improved. She is being evaluated by cardiology. No urgent left heart catheterization has been recommended. Patient wishes to follow up with her scientific glass blower as outpatient for further management. She will be discharged home and I have sent a prescription for Lantus as patient reports that she was not taking her insulin as she ran out of it. Orders not resulted at time of discharge: Pending orders 09/30/18 14:40 ECG 12 lead ECG [ECG] Routine 10/01/18 07:00 NM ryann perf SPECT multi [NM] Routine Date of Encounter: 10/02/18 Time of Encounter: 13:53 - Discharge Diagnosis (1) DKA, type 1 Priority: Primary Status: Acute Qualifiers: Diabetes mellitus complication detail: without coma Qualified Code(s): E10.10 - Type 1 diabetes mellitus with ketoacidosis without coma (2) Chest pain Priority: Secondary Status: Acute Qualifiers: Chest pain type: precordial pain Qualified Code(s): R07.2 - Precordial pain (3) CAD (coronary artery disease) Priority: Secondary Status: Chronic Qualifiers: Coronary Disease-Associated Artery/Lesion type: [place] artery [place] vs. transplanted heart: [place] heart Associated angina: without angina Qualified Code(s): I25.10 - Atherosclerotic heart disease of [place] coronary artery without angina pectoris (4) Type 2 diabetes mellitus Priority: Secondary Status: Acute Qualifiers: Diabetes mellitus exterminator insulin use: with care home use Diabetes mellitus complication status: with hyperglycemia Qualified Code(s): E11.65 - Type 2 diabetes mellitus with hyperglycemia; Z79.4 - nursing home (current) use of insulin (5) HTN (hypertension) Priority: Secondary Status: Chronic Qualifiers: Hypertension type: essential hypertension Qualified Code(s): I10 - Essential (primary) hypertension (6) Epigastric abdominal pain Priority: Secondary Status: Acute (7) Duodenal ulcer disease Priority: Secondary Status: Acute (8) GERD (gastroesophageal reflux disease) Priority: Secondary Status: Chronic Qualifiers: Esophagitis presence: with esophagitis Qualified Code(s): K21.0 - Gastro- esophageal reflux disease with esophagitis Hospital course: Ms. Valencia is a 58 year old female Discharge discussed with: patient, nurse - Time Spent with Patient Total time spent providing and/or coordinating discharge services: Greater than 30 minutes (40 min) - Discharge Medications Prescriptions: Aspirin [Lo-Dose Aspirin EC] 81 mg PO DAILY #30 tablet. Clopidogrel [Plavix] 75 mg PO DAILY #30 tablet Insulin Glargine,Hum.rec.anlog [Basaglar Kwikpen U-100] 15 unit SQ HS #3 insuln.pen Metoprolol [Lopressor] 50 mg PO BID #60 tablet Pantoprazole Sodium [Protonix] 40 mg PO DAILY #30 granpkt. Rosuvastatin Calcium 40 mg PO DAILY #30 tablet Sucralfate [Carafate] 1 gm PO QIDAC #120 tablet Home Medications: Albuterol Sulfate [Ventolin Hfa] 1 puff IH Q4H PRN 09/17/18 [History] Oxygen 2 l NS HS 09/17/18 [History] Quetiapine Fumarate [Seroquel] 400 mg PO HS 09/17/18 [History] Aspirin [Lo-Dose Aspirin EC] 81 mg PO DAILY #30 tablet. 10/02/18 [Rx] Clopidogrel [Plavix] 75 mg PO DAILY #30 tablet 10/02/18 [Rx] Insulin Glargine,Hum.rec.anlog [Basaglar Kwikpen U-100] 15 unit SQ HS #3 insuln.pen 10/02/18 [Rx] Metoprolol [Lopressor] 50 mg PO BID #60 tablet 10/02/18 [Rx] Pantoprazole Sodium [Protonix] 40 mg PO DAILY #30 granpkt. 10/02/18 [Rx] Rosuvastatin Calcium 40 mg PO DAILY #30 tablet 10/02/18 [Rx] Sucralfate [Carafate] 1 gm PO QIDAC #120 tablet 10/02/18 [Rx] Allergies/Adverse Reactions: Allergy/AdvReac Type Severity Reaction Status Date / Time prochlorperazine Allergy Seizure Verified 09/27/18 11:35 [From Compazine] Date of admission: 09/25/18 16:58 Primary care physician: Corina Jackson MD Consults: 09/28/18 11:58 Consult to Gastroenterology [CONS] Routine Consulting Provider: Archie Huber Reason for Consult: intractable n/v; has t2dm... Time Notified: 11:55 Call Completed: Yes 09/28/18 22:05 Consult to Wood Cutter [CONS] Routine Reason for SW Consult: Pt needs education on how to administer insulin/insulin dosing at home. 09/30/18 08:55 Consult to Diabetes Education [CONS] Routine Comment: Reason for Consult: DKA 10/01/18 11:20 Consult to Cardiology [CONS] Routine Comment: Consulting Provider: Cardiology Cecile Reason for Consult: Abnormal stress test Time Notified: 11:20 Call Completed: Yes Discharging clinician: Izabella Valencia Anticipated date of discharge: 10/02/18 - Constitutional Vitals: Temp Pulse Resp BP Pulse Ox 98.3 F 91 18 116/75 95 10/02/18 03:24 10/02/18 08:17 10/02/18 12:19 10/02/18 12:19 10/02/18 08:17 General appearance: Present: A&O X 3, no acute distress, answers questions appropriately Exam: . - Respiratory Respiratory exam: Present: CTAB. Absent: accessory muscle use, rales, rhonchi, wheezes - Cardiovascular Cardiovascular exam: Present: RRR, +S1, +S2. Absent: diastolic murmur, gallop, rubs, systolic murmur - GI/Abdominal GI/Abdominal exam: Present: normal bowel sounds, soft, no peritoneal signs. Absent: distended, tenderness - Extremities Exam Extremities exam: Present: warm, radial pulses palpable and symmetrical. Absent: calf tenderness, cyanotic, pedal edema - Neurological Exam Neurological exam: Present: alert, oriented X3, no focal deficits. Absent: facial droop, speech deficit - Patient Status Disposition: Home, Self-Care Condition: Fair Functional capacity at discharge: independent ambulation Overall status at discharge: patient is progressing back to baseline - Discharge Instructions Instructions: Diabetes Mellitus Type 2 in Adults (DC) Follow Up With: Corina Jackson MD [Primary Care Provider] - (in 1-2 weeks) Additional Instructions: Follow up with her scientific glass blower as early as possible - Diet and Activity Activity: increase activity as tolerated Diet: advance to your usual diet, diabetic diet, low fat, low cholesterol - VTE Deep Vein Thrombosis/Pulmonary Embolism Present on Admission: No
== END 2018-10-02 15:39 | disposition home or self-care (01) | DRG 638 ==
LOC: EMEROOARM 12:14 → 2NNU 16:58 → SUATTDRO 16:58 → 2NNU 17:36 → 3NENU 09-27 20:37 → 2SOUTHHOLD 09-28 11:26
PROVIDERS: ADMIT Student in an Organized Health Care Education/Training Program; ATTEND Internal Medicine
PROC: ENDOEBX (2018-09-29 14:00)